=== PATIENT | female | born 1955 | race American Indian/Alaskan Native ===

== ENCOUNTER 2017-05-29 08:49 | Inpatient (IN) | payer MEDICAID ==
[2017-05-29] MEDS ORDERED: BABY ASPIRIN PO ONE (09:36)
--- NOTE | 2017-05-29 09:39 | Emergency Department Report ---
Chief Complaint: Chest Pain Stated Complaint: FACE SWOLLEN/CHEST PAIN/FAINTING Time Seen by Provider: 05/29/17 09:30 - HPI History of Present Illness: co l lower swelling jaw w hx mrsa then states having cp that is dull - bp elevated non adherent w meds also co dizziness flat affect contstricted on valiu, pepcid, coreg sometimes she takes her norvasc, losartan, and asa cig occ etoh occ mom dec dm dad dec ? cause no mi in past she thinks she is diabetic ro acs - ROS Review of Systems: cp dizzy jaw pain sob sometimes jaw swelling - Exam Vital Signs: Vital Signs 05/29/17 09:23 Temperature 98.4 F Pulse Rate 94 H Respiratory 18 Rate Blood Pressure 185/103 O2 Sat by Pulse 100 Oximetry MSE screening note: Focused history and physical exam performed. Due to findings the following was ordered: ED Disposition for MSE Condition: Stable
[2017-05-29 10:03] LABS: Basophils % (Auto) 0.5 % (0.0-1.8); Eosinophils % (Auto) 0.9 % (0.0-4.3); Hematocrit 40.4 % (30.3-42.9); Mean Corpuscular HGB Conc 32 % (30-34); Mean Corpuscular Hemoglobin 29 pg (28-32); Mean Corpuscular Volume 91 fl (79-97); Platelet Count 210 K/mm3 (140-440); Red Blood Count 4.45 M/mm3 (3.65-5.03); Red Cell Distribution Width 15.4 % (13.2-15.2); White Blood Count 5.3 K/mm3 (4.5-11.0)
[2017-05-29 10:17] LABS: INR 0.95 (0.87-1.13)
[2017-05-29 10:18] LABS: Partial Thromboplastin Time 28.6 Sec. (24.2-36.6)
[2017-05-29 10:20] LABS: Alanine Aminotransferase 16 units/L (7-56); Albumin 3.7 g/dL (3.9-5); Alkaline Phosphatase 95 units/L (35-129); Anion Gap 17 mmol/L; BUN/Creatinine Ratio 21.42; Blood Urea Nitrogen 15 mg/dL (7-17); Calcium 8.7 mg/dL (8.4-10.2); Carbon Dioxide 25 mmol/L (22-30); Chloride 106.8 mmol/L (98-107); Glucose 115 mg/dL (65-100); Potassium 3.7 mmol/L (3.6-5.0); Sodium 145 mmol/L (137-145); Total Protein 7.3 g/dL (6.3-8.2)
[2017-05-29 10:22] LABS: Bilirubin,Direct < 0.2 mg/dL (0-0.2)
[2017-05-29] MEDS ORDERED: CLEOCIN 900 MG/50 mL 900 MG/50 ML BAG IV ONE ×2 (10:46→16:30)
[2017-05-29] MEDS ORDERED: TORADOL IV ONE (10:46)
--- NOTE | 2017-05-29 10:51 | Emergency Department Report ---
ED Chest Pain HPI - General Chief Complaint: Chest Pain Stated Complaint: FACE SWOLLEN/CHEST PAIN/FAINTING Time Seen by Provider: 05/29/17 10:45 Source: patient Mode of arrival: Ambulatory Limitations: No Limitations - History of Present Illness Initial Comments: Patient presents to the emergency department with 2 separate complaints the first is chest pain which she's had worsening over the last couple weeks. She gets pressure in the center of her chest that lasts 15-20 minutes at a time. It is been getting worse. She does notice it sometimes with exertion but this is not consistent. The pain does not radiate that she does get short of breath with it from time to time. Denies fevers chills cough. Her second complaint is that she has some facial swelling and jaw pain. Note of a swelling and palpable induration to the left cheek. She's had MRSA in the past. She's been on ampicillin from her primary care for possible dental infection. MD Complaint: chest pain -: Gradual, week(s) Onset: during rest, during exertion Pain Location: substernal Pain Radiation: none Severity: moderate Quality: tightness, pressure Consistency: intermittent Improves With: nothing Worsens With: nothing re: dyspnea. denies: nausea, vomting, diaphoresis Other Symptoms: other (swelling of left lower jaw) - Related Data Home Medications Medication Instructions Recorded Confirmed Last Taken Diazepam 06/11/15 06/11/15 Unknown Losartan 06/11/15 06/11/15 Unknown traMADol 06/11/15 06/11/15 Unknown Previous Rx's Medication Instructions Recorded Last Taken Type FLUoxetine [PROzac] 20 mg PO QDAY #30 capsule 06/11/15 Unknown Rx Famotidine [Pepcid] 20 mg PO BID #60 tablet 06/11/15 Unknown Rx LORazepam 0.5 mg PO BID #30 tablet 06/11/15 Unknown Rx amLODIPine [Norvasc] 5 mg PO DAILY #30 tab 06/11/15 Unknown Rx Albuterol Sulfate [Ventolin HFA] 2 puff IH Q4H PRN #1 hfa.aer.ad 03/03/16 Unknown Rx Azithromycin [Zithromax] 250 mg PO DAILY #1 pkg 03/03/16 Unknown Rx Prednisone [predniSONE 5 mg (6-Day 5 mg PO .TAPER #1 tab.ds.pk 03/03/16 Unknown Rx Pack, 21 Tabs)] Allergies Allergy/AdvReac Type Severity Reaction Status Date / Time sulfamethoxazole Allergy Swelling Verified 05/29/17 11:11 [From Bactrim] trimethoprim [From Bactrim] Allergy Swelling Verified 05/29/17 11:11 Heart Score - HEART Score History: Highly suspicious EKG: Normal Age: 45-65 Risk factors: > 3 risk factors or hx of atherosclerotic disease Troponin: < normal limit HEART Score: 5 - Critical Actions Critical Actions: 4-6 pts:12-16.6% risk of adverse cardiac event. Should be admitted ED Review of Systems ROS: Stated complaint: FACE SWOLLEN/CHEST PAIN/FAINTING Other details as noted in HPI Constitutional: denies: chills, fever Eyes: denies: eye pain, eye discharge, vision change ENT: other (swelling of left lower jaw). denies: ear pain, throat pain, dental pain Respiratory: denies: cough, shortness of breath, wheezing Cardiovascular: chest pain, dyspnea on exertion. denies: palpitations, edema, syncope Endocrine: no symptoms reported Gastrointestinal: denies: abdominal pain, nausea, diarrhea Genitourinary: denies: urgency, dysuria, discharge Musculoskeletal: denies: back pain, joint swelling, arthralgia Skin: denies: rash, lesions Neurological: denies: headache, weakness, paresthesias Psychiatric: denies: anxiety, depression Hematological/Lymphatic: denies: easy bleeding, easy bruising ED Past Medical Hx - Past Medical History Previous Medical History?: Yes Hx Hypertension: Yes Hx CVA: Yes (2009) Hx Heart Attack/AMI: No Hx Congestive Heart Failure: No Hx Diabetes: Yes (NO MEDS) Hx GERD: No Hx Arthritis: Yes Hx Asthma: Yes Hx COPD: No Hx Tuberculosis: No Hx HIV: No - Surgical History Past Surgical History?: Yes Additional Surgical History: stomach surgery - Social History Smoking Status: Current Some Day Smoker Substance Use Type: Alcohol, Marijuana, Prescribed - Medications Home Medications: Home Medications Medication Instructions Recorded Confirmed Last Taken Type Diazepam 06/11/15 06/11/15 Unknown History FLUoxetine [PROzac] 20 mg PO QDAY #30 capsule 06/11/15 Unknown Rx Famotidine [Pepcid] 20 mg PO BID #60 tablet 06/11/15 Unknown Rx LORazepam 0.5 mg PO BID #30 tablet 06/11/15 Unknown Rx Losartan 06/11/15 06/11/15 Unknown History amLODIPine [Norvasc] 5 mg PO DAILY #30 tab 06/11/15 Unknown Rx traMADol 06/11/15 06/11/15 Unknown History Albuterol Sulfate [Ventolin HFA] 2 puff IH Q4H PRN #1 hfa.aer.ad 03/03/16 Unknown Rx Azithromycin [Zithromax] 250 mg PO DAILY #1 pkg 03/03/16 Unknown Rx Prednisone [predniSONE 5 mg (6-Day 5 mg PO .TAPER #1 tab.ds.pk 03/03/16 Unknown Rx Pack, 21 Tabs)] ED Physical Exam - General Limitations: No Limitations General appearance: alert, in no apparent distress - Head Head exam: Present: atraumatic, normocephalic - Eye Eye exam: Present: normal appearance - ENT ENT exam: Present: mucous membranes moist - Expanded ENT Exam Expanded Teeth exam: Absent: dental caries, dental tenderness # Throat exam: Positive: normal inspection. Negative: tonsillar erythema, tonsillomegaly - Neck Neck exam: Present: tenderness, other (there is swelling and tenderness to the left lateral mandible. It appears indurated) - Respiratory Respiratory exam: Present: normal lung sounds bilaterally. Absent: respiratory distress - Cardiovascular Cardiovascular Exam: Present: regular rate, normal rhythm. Absent: systolic murmur, diastolic murmur, rubs, gallop - GI/Abdominal GI/Abdominal exam: Present: soft, normal bowel sounds - Extremities Exam Extremities exam: Present: normal inspection - Back Exam Back exam: Present: normal inspection - Neurological Exam Neurological exam: Present: alert, oriented X3 - Psychiatric Psychiatric exam: Present: normal affect, normal mood - Skin Skin exam: Present: warm, dry, intact, normal color. Absent: rash ED Course Vital Signs 05/29/17 09:23 Temperature 98.4 F Pulse Rate 94 H Respiratory 18 Rate Blood Pressure 185/103 O2 Sat by Pulse 100 Oximetry YASEMIN score - Yasemin Score Age > 65: (0) No Aspirin use within the Past 7 Days: (0) No 3 or more CAD Risk Factors: (0) No 2 or more Angina events in past 24 hrs: (1) Yes Known CAD with more than 50% Stenosis: (0) No Elevated Cardiac Markers: (0) No ST Deviation Greater than 0.5mm: (0) No YASEMIN Score: 1 ED Medical Decision Making - Lab Data Result diagrams: 05/29/17 09:45 05/29/17 09:45 Laboratory Results - last 24 hr 05/29/17 05/29/17 05/29/17 09:45 09:45 09:45 WBC 5.3 RBC 4.45 Hgb 13.0 Hct 40.4 MCV 91 MCH 29 MCHC 32 RDW 15.4 H Plt Count 210 Lymph % (Auto) 27.6 [place] % (Auto) 9.5 H Eos % (Auto) 0.9 Baso % (Auto) 0.5 Lymph # 1.5 [place] # 0.5 Eos # 0.0 Baso # 0.0 Seg Neutrophils % 61.5 Seg Neutrophils # 3.3 PT 12.6 INR 0.95 APTT 28.6 Sodium 145 Potassium 3.7 Chloride 106.8 Carbon Dioxide 25 Anion Gap 17 BUN 15 Creatinine 0.7 Estimated GFR > 60 BUN/Creatinine Ratio 21.42 Glucose 115 H Calcium 8.7 Total Bilirubin 0.30 Direct Bilirubin < 0.2 AST 13 ALT 16 Alkaline Phosphatase 95 Troponin T < 0.010 Total Protein 7.3 Albumin 3.7 L Albumin/Globulin Ratio 1.0 - EKG Data -: EKG Interpreted by [place] - EKG Data 05/29/17 10:55 EKG is normal sinus rhythm rate of 81 normal axis normal intervals no ST or T- wave changes - Medical Decision Making Patient is a 61-year-old female who presents emergency Department with 2 complaints the first is chest pain that is concerning for possible ACS. Plan to admit her for stress testing. The second complaint is left jaw pain. She has a history of MRSA. She's been treated for a dental infection recently. The left lateral mandible is firm and swollen. Suspicion is that there is an underlying infection and possible abscess. Plan CT and treat with IV clindamycin. Discussed with hospitalist and plan admit for chest pain rule out. IV antibiotics for facial infection Portions of this chart were dictated with dictation software. There may be dictation errors contained within this note. Critical Care Time: No Critical care attestation.: If time is entered above; I have spent that time in minutes in the direct care of this critically ill patient, excluding procedure time. ED Disposition Clinical Impression: Chest pain, Facial cellulitis Disposition: OP ADMIT IP TO THIS HOSP Is pt being admited?: Yes Does the pt Need Aspirin: Yes Condition: Stable Instructions: Chest Pain (ED)
--- NOTE | 2017-05-29 10:56 | XRay Report ---
Chest 2 views: History: Chest pain. Findings: Online cardiomegaly. Trachea is midline. No consolidation, pneumothorax or pleural effusion. Impression: No acute cardiopulmonary findings.
[2017-05-29] MEDS ORDERED: NACL ONE ×2 (10:59→17:15)
[2017-05-29] MEDS ORDERED: TORADOL ONE (16:29)
[2017-05-29 17:13] LABS: Bilirubin,Urine NEG (Negative); Blood,Urine NEG (Negative); Ketones,Urine NEG (Negative); Leukocyte Esterase,Urine NEG (Negative); Mucus,Urine 1+ /HPF; Nitrite,Urine NEG (Negative); Urobilinogen,Urine < 2.0 mg/dL (<2.0)
[2017-05-29] MEDS ORDERED: PNEUMOVAX 23 IM ONE (18:26)
--- NOTE | 2017-05-29 18:26 | Cat Scan Report ---
FINAL REPORT PROCEDURE: CT FACIAL BONES W CON TECHNIQUE: Computerized tomography of the facial bones and soft tissues with axial and coronal sections was performed from the cranial aspect of the frontal sinuses to the caudal portion of the mandible following the IV injection of iodinated nonionic contrast. HISTORY: facial swelling, pain, possible abcess COMPARISON: No prior studies are available for comparison. FINDINGS: Paranasal sinuses appear clear. Mastoid air cells and middle ears appear clear. Globes appear symmetric. No postseptal swelling is seen. Soft tissue edema is seen in the left side of the jaw. Likely reactive lymph nodes are seen in the submandibular regions. The submandibular and parotid glands appear normal. No facial bone fracture is seen. No mandibular lesion is seen. There is no soft tissue abscess. IMPRESSION: Soft tissue swelling is seen in the left side of the jaw, which could be due to cellulitis. No bony abnormality is seen and no soft tissue abscess is seen.
--- NOTE | 2017-05-29 21:34 | History and Physical Report ---
History of Present Illness Date of examination: 05/29/17 Date of admission: 05/29/17 16:17 Chief complaint: L SIDED chest pain 2 weeks-intermittent in nature History of present illness: History of present illness: 61-year-old -[place] female well known to me from my office who is noncompliant with her blood pressure medication comes in for left-sided chest pain for past couple of weeks. Intermittent in nature. Mostly retrosternal. Occasionally chest pain worsens with exertion. Patient was asked to follow-up with the cardiology [facility] but she never followed. No diaphoresis nor palpitations. Shortness of breath on exertion present. Patient is obese and noncompliant. Patient HAs left cheek swelling secondary to dental infection. No fever no chills. Heart Score - HEART Score History: Highly suspicious EKG: Normal Age: 45-65 Risk factors: > 3 risk factors or hx of atherosclerotic disease Troponin: < normal limit HEART Score: 5 - Critical Actions Critical Actions: 4-6 pts:12-16.6% risk of adverse cardiac event. Should be admitted ED Review of Systems ROS: Stated complaint: FACE SWOLLEN/CHEST PAIN/FAINTING Other details as noted in HPI Constitutional: denies: chills, fever Eyes: denies: eye pain, eye discharge, vision change ENT: other (swelling of left lower jaw). denies: ear pain, throat pain, dental pain Respiratory: denies: cough, shortness of breath, wheezing Cardiovascular: chest pain, dyspnea on exertion. denies: palpitations, edema, syncope Endocrine: no symptoms reported Gastrointestinal: denies: abdominal pain, nausea, diarrhea Genitourinary: denies: urgency, dysuria, discharge Musculoskeletal: denies: back pain, joint swelling, arthralgia Skin: denies: rash, lesions Neurological: denies: headache, weakness, paresthesias Psychiatric: denies: anxiety, depression Hematological/Lymphatic: denies: easy bleeding, easy bruising ED Past Medical Hx - Past Medical History Previous Medical History?: Yes Hx Hypertension: Yes Hx CVA: Yes (2009) Hx Heart Attack/AMI: No Hx Congestive Heart Failure: No Hx Diabetes: Yes (NO MEDS) Hx GERD: No Hx Arthritis: Yes Hx Asthma: Yes Hx COPD: No Hx Tuberculosis: No Hx HIV: No - Surgical History Past Surgical History?: Yes Additional Surgical History: stomach surgery - Social History Smoking Status: Current Some Day Smoker Substance Use Type: Alcohol, Marijuana, Prescribed - Medications Home Medications: Home Medications Medication Instructions Recorded Confirmed Last Taken Type Diazepam 06/11/15 06/11/15 Unknown History FLUoxetine [PROzac] 20 mg PO QDAY #30 capsule 06/11/15 Unknown Rx Famotidine [Pepcid] 20 mg PO BID #60 tablet 06/11/15 Unknown Rx LORazepam 0.5 mg PO BID #30 tablet 06/11/15 Unknown Rx Losartan 06/11/15 06/11/15 Unknown History amLODIPine [Norvasc] 5 mg PO DAILY #30 tab 06/11/15 Unknown Rx traMADol 06/11/15 06/11/15 Unknown History Albuterol Sulfate [Ventolin HFA] 2 puff IH Q4H PRN #1 hfa.aer.ad 03/03/16 Unknown Rx Azithromycin [Zithromax] 250 mg PO DAILY #1 pkg 03/03/16 Unknown Rx Prednisone [predniSONE 5 mg (6-Day 5 mg PO .TAPER #1 tab.ds.pk 03/03/16 Unknown Rx Pack, 21 Tabs)] Medications and Allergies Allergies Allergy/AdvReac Type Severity Reaction Status Date / Time sulfamethoxazole Allergy Swelling Verified 05/29/17 11:11 [From Bactrim] trimethoprim [From Bactrim] Allergy Swelling Verified 05/29/17 11:11 Home Medications Medication Instructions Recorded Confirmed Last Taken Type Carvedilol [Coreg] 25 mg PO QDAY 05/29/17 05/29/17 Unknown History Diltiazem HCl [Diltiazem ER] 1 tab PO QDAY 05/29/17 05/29/17 Unknown History Ranitidine HCl [Zantac 150 MG TAB] 1 tab PO PRN PRN 05/29/17 05/29/17 Unknown History Active Meds: Active Medications Aspirin (Aspirin) 325 mg PO QDAY ROBERTO CARLOS Pneumococcal Polyvalent Vaccine (Pneumovax 23) 0.5 ml IM .ONCE ONE Stop: 05/30/17 12:01 Review of Systems All systems: negative Exam - Physical Exam Narrative exam: Lying in bed comfortably. In no distress. - Constitutional Vitals: Temp Pulse Resp BP Pulse Ox 98.1 F 84 20 157/80 98 05/29/17 21:09 05/29/17 21:09 05/29/17 21:09 05/29/17 21:09 05/29/17 21:09 General appearance: Present: no acute distress, well-nourished - EENT Eyes: Present: PERRL ENT: hearing intact, clear oral mucosa - Neck Neck: Present: supple, normal ROM - Respiratory Respiratory effort: normal Respiratory: bilateral: CTA - Cardiovascular Heart rate: 80 Rhythm: regular Heart Sounds: Present: S1 & S2. Absent: rub, click - Extremities Extremities: no ischemia, pulses intact, pulses symmetrical, No edema Peripheral Pulses: within normal limits - Abdominal General gastrointestinal: Present: soft, non-tender, non-distended, normal bowel sounds Female genitourinary: Present: normal - Rectal Rectal Exam: deferred - Integumentary Integumentary: Present: clear, warm, dry - Musculoskeletal Musculoskeletal: gait normal, strength equal bilaterally - Psychiatric Psychiatric: appropriate mood/affect, intact judgment & insight - Neurologic Neurologic: CNII-XII intact, moves all extremities, gait normal - Allied Health Allied health notes reviewed: nursing Results - Labs CBC & Chem 7: 05/29/17 09:45 05/29/17 09:45 Labs: Laboratory Last Values WBC 5.3 K/mm3 (4.5-11.0) 05/29/17 09:45 RBC 4.45 M/mm3 (3.65-5.03) 05/29/17 09:45 Hgb 13.0 gm/dl (10.1-14.3) 05/29/17 09:45 Hct 40.4 % (30.3-42.9) 05/29/17 09:45 MCV 91 fl (79-97) 05/29/17 09:45 MCH 29 pg (28-32) 05/29/17 09:45 MCHC 32 % (30-34) 05/29/17 09:45 RDW 15.4 % (13.2-15.2) H 05/29/17 09:45 Plt Count 210 K/mm3 (140-440) 05/29/17 09:45 Lymph % (Auto) 27.6 % (13.4-35.0) 05/29/17 09:45 [place] % (Auto) 9.5 % (0.0-7.3) H 05/29/17 09:45 Eos % (Auto) 0.9 % (0.0-4.3) 05/29/17 09:45 Baso % (Auto) 0.5 % (0.0-1.8) 05/29/17 09:45 Lymph # 1.5 K/mm3 (1.2-5.4) 05/29/17 09:45 [place] # 0.5 K/mm3 (0.0-0.8) 05/29/17 09:45 Eos # 0.0 K/mm3 (0.0-0.4) 05/29/17 09:45 Baso # 0.0 K/mm3 (0.0-0.1) 05/29/17 09:45 Seg Neutrophils % 61.5 % (40.0-70.0) 05/29/17 09:45 Seg Neutrophils # 3.3 K/mm3 (1.8-7.7) 05/29/17 09:45 PT 12.6 Sec. (12.2-14.9) 05/29/17 09:45 INR 0.95 (0.87-1.13) 05/29/17 09:45 APTT 28.6 Sec. (24.2-36.6) 05/29/17 09:45 Sodium 145 mmol/L (137-145) 05/29/17 09:45 Potassium 3.7 mmol/L (3.6-5.0) 05/29/17 09:45 Chloride 106.8 mmol/L (98-107) 05/29/17 09:45 Carbon Dioxide 25 mmol/L (22-30) 05/29/17 09:45 Anion Gap 17 mmol/L 05/29/17 09:45 BUN 15 mg/dL (7-17) 05/29/17 09:45 Creatinine 0.7 mg/dL (0.7-1.2) 05/29/17 09:45 Estimated GFR > 60 ml/min 05/29/17 09:45 BUN/Creatinine Ratio 21.42 % 05/29/17 09:45 Glucose 115 mg/dL (65-100) H 05/29/17 09:45 Calcium 8.7 mg/dL (8.4-10.2) 05/29/17 09:45 Total Bilirubin 0.30 mg/dL (0.1-1.2) 05/29/17 09:45 Direct Bilirubin < 0.2 mg/dL (0-0.2) 05/29/17 09:45 AST 13 units/L (5-40) 05/29/17 09:45 ALT 16 units/L (7-56) 05/29/17 09:45 Alkaline Phosphatase 95 units/L (35-129) 05/29/17 09:45 Troponin T < 0.010 ng/mL (0.00-0.029) 05/29/17 15:34 Total Protein 7.3 g/dL (6.3-8.2) 05/29/17 09:45 Albumin 3.7 g/dL (3.9-5) L 05/29/17 09:45 Albumin/Globulin Ratio 1.0 % 05/29/17 09:45 Urine Color Yellow (Yellow) 05/29/17 16:29 Urine Turbidity Clear (Clear) 05/29/17 16:29 Urine pH 5.0 (5.0-7.0) 05/29/17 16:29 Ur Specific [place] 1.026 (1.003-1.030) 05/29/17 16:29 Urine Protein 30 mg/dl mg/dL (Negative) 05/29/17 16:29 Urine Glucose (UA) Neg mg/dL (Negative) 05/29/17 16:29 Urine Ketones Neg mg/dL (Negative) 05/29/17 16:29 Urine Blood Neg (Negative) 05/29/17 16:29 Urine Nitrite Neg (Negative) 05/29/17 16:29 Urine Bilirubin Neg (Negative) 05/29/17 16:29 Urine Urobilinogen < 2.0 mg/dL (<2.0) 05/29/17 16:29 Ur Leukocyte Esterase Neg (Negative) 05/29/17 16:29 Urine WBC (Auto) 3.0 /HPF (0.0-6.0) 05/29/17 16:29 Urine RBC (Auto) 3.0 /HPF (0.0-6.0) 05/29/17 16:29 U Epithel Cells (Auto) 5.0 /HPF (0-13.0) 05/29/17 16:29 Urine Mucus 1+ /HPF 05/29/17 16:29 - Imaging and Cardiology EKG: report reviewed (normal sinus rhythm and LVH by voltage criteria nonspecific ST-T wave changes) Chest x-ray: report reviewed (no acute findings) Imaging and Cardiology: CT facial bones soft tissue swelling is seen in the left side of the jaw coma which could be due to cellulitis. No bony abnormalities seen. No soft tissue abscess is seen. Assessment and Plan Advance Directives: Yes (full code) VTE prophylaxis?: Chemical Plan of care discussed with patient/family: Yes - Patient Problems (1) Facial cellulitis Current Visit: Yes Status: Acute Plan to address problem: Left facial cellulitis probably secondary to a tooth abscess. Will treat with broad-spectrum antibiotics at this point in the form of Unasyn. No vancomycin ordered. (2) Acute coronary syndrome Current Visit: Yes Status: Acute Plan to address problem: We will get serial cardiac enzymes and Lexiscan in the morning. Differential diagnosis of costochondritis and reflux esophagitis to be considered. Possible reflux esophagitis because of her obesity and occasional epigastric pain. (3) Reflux esophagitis Current Visit: Yes Status: Chronic Plan to address problem: Patient has occasional epigastric pain and reflux symptoms. Chest pain may be secondary to reflux esophagitis. (4) Uncontrolled hypertension Current Visit: Yes Status: Chronic Plan to address problem: Patient's blood pressure is usually around 170 and diastolic of 110. Patient is noncompliant. Surprisingly the blood pressure is normal today. Continue antihypertensives. (5) DVT prophylaxis Current Visit: Yes Status: Acute Plan to address problem: On Lovenox 40 mg subcutaneous daily.
[2017-05-29] MEDS ORDERED: APRESOLINE IV PRN (21:40)
[2017-05-29] MEDS ORDERED: TYLENOL PO PRN (21:58)
[2017-05-29] MEDS ORDERED: ZOFRAN IV PRN (21:58)
[2017-05-29] MEDS ORDERED: DILAUDID IV PRN (21:58)
[2017-05-29] MEDS ORDERED: PERCOCET 5/325 PO PRN (21:58)
[2017-05-29] MEDS ORDERED: DULCOLAX PR PRN (21:58)
[2017-05-29] MEDS ORDERED: MILK OF MAGNESIA PO PRN (21:58)
[2017-05-29] MEDS: COREG PO SCH (22:16)
[2017-05-29] MEDS: PEPCID PO SCH (22:16)
[2017-05-29] MEDS: CARDIZEM CD PO SCH (22:16)
[2017-05-29] MEDS: UNASYN/NS 3 GM/100 ML 3 GM/100 ML BAG IV SCH (23:16)
[2017-05-30 01:01] LABS: Creatine Kinase MB 1.4 ng/mL (0.0-4.0)
[2017-05-30] MEDS: UNASYN/NS 3 GM/100 ML 3 GM/100 ML BAG IV SCH ×2 (05:25→13:21)
[2017-05-30 05:31] LABS: Basophils % (Auto) 0.4 % (0.0-1.8); Eosinophils % (Auto) 1.6 % (0.0-4.3); Hematocrit 36.9 % (30.3-42.9); Hemoglobin 11.9 gm/dl (10.1-14.3); Mean Corpuscular HGB Conc 32 % (30-34); Mean Corpuscular Hemoglobin 29 pg (28-32); Mean Corpuscular Volume 90 fl (79-97); Platelet Count 195 K/mm3 (140-440); Red Blood Count 4.12 M/mm3 (3.65-5.03); Red Cell Distribution Width 15.6 % (13.2-15.2); White Blood Count 7.5 K/mm3 (4.5-11.0)
[2017-05-30 05:59] LABS: Creatine Kinase MB 1.2 ng/mL (0.0-4.0)
[2017-05-30 06:05] LABS: Alanine Aminotransferase 16 units/L (7-56); Albumin 3.6 g/dL (3.9-5); Albumin/Globulin Ratio 1.1 %; Alkaline Phosphatase 83 units/L (35-129); Anion Gap 19 mmol/L; BUN/Creatinine Ratio 33.33; Blood Urea Nitrogen 20 mg/dL (7-17); Calcium 8.7 mg/dL (8.4-10.2); Carbon Dioxide 23 mmol/L (22-30); Chloride 105.4 mmol/L (98-107); Creatine Kinase 104 units/L (30-135); Glucose 119 mg/dL (65-100); Potassium 3.9 mmol/L (3.6-5.0); Sodium 143 mmol/L (137-145); Total Protein 6.8 g/dL (6.3-8.2)
[2017-05-30] MEDS ORDERED: LEXISCAN IV ONE ×2 (08:01→08:05)
--- NOTE | 2017-05-30 08:36 | Admit Criteria Form ---
Admission Criteria Documentation: CHEST PAIN Clinical Indications for Admission to Inpatient Care (Place 'X' for any and all applicable criteria): Admission is indicated for chest pain and ANY ONE of the following(1)(2)(3)(4)(5 ): [X]I. Angina with acute coronary syndrome (Also use Myocardial Infarction or Angina guideline) [ ]II. Hemodynamic instability [ ]III. Angina needing acute intervention as indicated by ALL of the following( 11)(12): [ ]a) Unstable angina is present as indicated by angina that is ANY ONE of the following: [ ]i) New onset [ ]ii) Nocturnal [ ]iii) Prolonged at rest [ ]iv) Progressive [ ]b) Angina warrants acute intervention as indicated by ANY ONE of the following: [ ]i) Recurrent angina (e.g, not responding as previously to treatment) [ ]ii) Angina at rest or with low-level activities despite initial medical therapy [ ]iii) New or presumably new ST-segment depression on ECG [ ]iv) Signs or symptoms of heart failure (eg, dyspnea, pulmonary edema) [ ]v) New or worsening mitral regurgitation [ ]vi) Hemodynamic instability [ ]vii) Dangerous arrhythmia (eg, sustained ventricular tachycardia) [ ]viii) History of percutaneous coronary intervention within 6 months [ ]ix) History of coronary artery bypass graft surgery [ ]x) YASEMIN risk score of 2 or greater[A] [ ]xi) History of Diabetes(14) [ ]xii) High-risk cardiac ischemia findings on noninvasive testing (e.g, echocardiogram, treadmill testing, nuclear scan) [ ]xiii) Chronic renal insufficiency (ie, estimated GFR less than 60 mL/min/1.732m) [ ]xiv) Left ventricular ejection fraction less than 40% [ ]IV. Evidence of GA (eg, cardiac biomarkers positive, ST-segment elevation on ECG) also use Myocardial Infarction Criteria Form. [ ]V. Pulmonary edema [ ]. Respiratory distress [ ]VII. Chest pain indicative of serious diagnosis other than coronary artery disease (eg, aortic dissection) [ ]VIII. Contraindications and/or Inappropriate clinical situations for Observational Care in patients with Chest Pain, when ANY ONE of the following is required: [ ]a) Patient with risk factor for pulmonary embolism, acute coronary syndrome and myocardial infarction (18) [ ]b) Patient with Pulmonary embolism require an average LOS of 4.3 days, therefore emergency department observation management is inappropriate 18,23 [ ]c) Painful condition/s in the elderly, have the highest rate of recidivism after emergency department observation management (10.8%) 20,21,22 [ ]d) Elevated cardiac biomarker requires intensive and exhaustive care (19) [ ]IX. General contraindications and/or Inappropriate clinical situations for Observational Care in patients with Chest Pain, when ANY ONE of the following is required: [ ]a) Prediction of prolongation of LOS based on ANY ONE of the following may be considered as a contraindication for observational care 2, 3, 4, 5, 6, 7, 8, 9, 10, 11 [ ]i) Age > 65 yrs. [ ]ii) Patient arriving by ambulance [ ]iii) Patient with high acuity [ ]iv) Patient requiring vital sign monitoring [ ]v) Patient on IV medication [ ]b) Systolic blood pressures 180mmHg 3,12 [ ]c) Patient with altered mental status including delirium and other alteration of consciousness, (3) [ ]d) Patient whose discharge disposition will be to a care home home or rehabilitation home should not be managed in Emergency Department Observation Unit. CMS rule requires 3 days hospital stay before such placement. 3,13 [ ]e) Patient with failure to thrive due to broad array of etiologies 3,16,17 [ ]f) Inability to ambulate 3,14 Extended stay beyond goal length of stay may be needed for (1)(28): [ ]a) Specific condition diagnosed after evaluation (eg, pulmonary embolism, aortic dissection) [ ]b) Unstable angina [ ]c) Continued suspicion of acute coronary syndrome with inability to complete needed cardiac evaluation (eg, patient clinically unable to undergo stress testing) [ ]d) Myocardial infarction (Contents from ANGINA and CHEST PAIN clinical indications for admission to inpatient care have been integrated in this form) The original Related Content Database (RCDb[facility] content created by [employer] has been revised. The portions of the content which have been revised are identified through the use of italic text or in bold, and Related Content Database (RCDb[facility] has neither reviewed nor approved the modified material. All other unmodified content is copyright Related Content Database (RCDb[facility]. Please see references footnoted in the original Related Content Database (RCDb[facility] edition 2016 Admission Criteria Met: Yes
--- NOTE | 2017-05-30 08:51 | Consultation ---
History of Present Illness Consult date: 05/30/17 History of present illness: 61-year-old -[place] female who is noncompliant with her blood pressure medication and comes in for left-sided chest pain for past couple of weeks. The pain is intermittent in nature, retrosternal, worsens with exertion. No diaphoresis nor palpitations. Shortness of breath on exertion present. Patient is obese and noncompliant. Patient denies orthopnea, pnd, palpitations , dizziness and syncope. Past History Past Medical History: arthritis, diabetes, hyperthyroidism Past Surgical History: Other (stomach) Social history: denies: smoking, alcohol abuse Family history: no significant family history Medications and Allergies Allergies Allergy/AdvReac Type Severity Reaction Status Date / Time sulfamethoxazole Allergy Swelling Verified 05/29/17 11:11 [From Bactrim] trimethoprim [From Bactrim] Allergy Swelling Verified 05/29/17 11:11 Home Medications Medication Instructions Recorded Confirmed Last Taken Type Carvedilol [Coreg] 25 mg PO QDAY 05/29/17 05/29/17 Unknown History Diltiazem HCl [Diltiazem ER] 1 tab PO QDAY 05/29/17 05/29/17 Unknown History Ranitidine HCl [Zantac 150 MG TAB] 1 tab PO PRN PRN 05/29/17 05/29/17 Unknown History Active Meds: Active Medications Acetaminophen (Tylenol) 650 mg PO Q4H PRN PRN Reason: Pain MILD(1-3)/Fever >100.5/FISCHER Aspirin (Aspirin) 325 mg PO QDAY [facility] Bisacodyl (Dulcolax) 10 mg [place] QDAY PRN PRN Reason: Constipation unrelieved by MOM Carvedilol (Coreg) 25 mg PO QDAY [facility] Last Admin: 05/29/17 22:16 Dose: 25 mg Diltiazem HCl (Cardizem Cd) 240 mg PO QDAY [facility] Last Admin: 05/29/17 22:16 Dose: 240 mg Famotidine (Pepcid) 20 mg PO BID [facility] Last Admin: 05/29/17 22:16 Dose: 20 mg Hydralazine HCl (Apresoline) 10 mg IV Q4HR PRN PRN Reason: Blood Pressure Last Admin: 05/29/17 22:08 Dose: 10 mg Hydromorphone HCl (Dilaudid) 0.5 mg IV Q3H PRN PRN Reason: Pain , Severe (7-10) Ampicillin Sodium/Sulbactam Sodium (Unasyn/Ns 3 Gm/100 Ml) 3 gm in 100 mls @ 100 mls/hr IV Q6HR ROBERTO CARLOS PRN Reason: Protocol Last Admin: 05/30/17 05:25 Dose: 100 mls/hr Magnesium Hydroxide (Milk Of Magnesia) 30 ml PO Q4H PRN PRN Reason: Constipation Ondansetron HCl (Zofran) 4 mg IV Q8H PRN PRN Reason: N/V unrelieved by Reglan Last Admin: 05/30/17 04:14 Dose: 4 mg Oxycodone/Acetaminophen (Percocet 5/325) 1 tab PO Q6H PRN PRN Reason: Pain, Moderate (4-6) Pneumococcal Polyvalent Vaccine (Pneumovax 23) 0.5 ml IM .ONCE ONE Stop: 05/30/17 12:01 Review of Systems All systems: negative (pertinent positives mentioned in HPI) Physical Examination Vital Signs Temp Pulse Resp BP Pulse Ox 98.4 F 94 H 18 185/103 100 05/29/17 09:23 05/29/17 09:23 05/29/17 09:23 05/29/17 09:23 05/29/17 09:23 General appearance: no acute distress HEENT: Positive: PERRL, EOMI Neck: Positive: neck supple Cardiac: Positive: Reg Rate and Rhythm, S1/S2 Lungs: Positive: Normal Exam, clear to auscultation Neuro: Positive: Grossly Intact Abdomen: Positive: Soft, Active Bowel Sounds Extremities: Present: normal Results 05/30/17 04:52 05/30/17 04:52 Cardiac Enzymes 05/29/17 05/30/17 Range/Units 23:47 04:52 AST 13 (5-40) units/L CK-MB (CK-2) 1.4 1.2 (0.0-4.0) ng/mL Lipids 05/29/17 Range/Units 23:47 Triglycerides 62 (2-149) mg/dL Cholesterol 134 (50-199) mg/dL HDL Cholesterol 32 L (40-59) mg/dL Cholesterol/HDL Ratio 4.18 % CBC 05/30/17 Range/Units 04:52 WBC 7.5 (4.5-11.0) K/mm3 RBC 4.12 (3.65-5.03) M/mm3 Hgb 11.9 (10.1-14.3) gm/dl Hct 36.9 (30.3-42.9) % Plt Count 195 (140-440) K/mm3 Lymph # 0.7 L (1.2-5.4) K/mm3 [place] # 0.6 (0.0-0.8) K/mm3 Eos # 0.1 (0.0-0.4) K/mm3 Baso # 0.0 (0.0-0.1) K/mm3 Comprehensive Metabolic Panel 05/30/17 Range/Units 04:52 Sodium 143 (137-145) mmol/L Potassium 3.9 (3.6-5.0) mmol/L Chloride 105.4 (98-107) mmol/L Carbon Dioxide 23 (22-30) mmol/L BUN 20 H (7-17) mg/dL Creatinine 0.6 L (0.7-1.2) mg/dL Glucose 119 H (65-100) mg/dL Calcium 8.7 (8.4-10.2) mg/dL AST 13 (5-40) units/L ALT 16 (7-56) units/L Alkaline Phosphatase 83 (35-129) units/L Total Protein 6.8 (6.3-8.2) g/dL Albumin 3.6 L (3.9-5) g/dL EKG interpretations - Telemetry EKG Rhythm: Sinus Rhythm Assessment and Plan Acute coronary syndrome - Troponin negative x 3. EKG shows sinus rhythm with nonspecific STTW changes. lexiscan this AM. nuclear stress test completed. Small inferior defect present on stress images, likely secondary to attenuation. EF 66%. Low risk. Reflux esophagitis - management per primary Uncontrolled hypertension - maximize antihypertensives
[2017-05-30] MEDS ORDERED: ASPIRIN PO SCH (10:00)
--- NOTE | 2017-05-30 10:24 | Discharge Summary ---
Providers - Providers Date of Admission: 05/29/17 16:17 Attending physician: KARLEY ANDERSON MD 05/29/17 21:55 Consult to Physician [CONS] Routine Consulting Provider: DARIA SCHOFIELD Reason For Exam: chest pain Place consult to:: Dr. Schofield Notified:: Umair PATTON Was contact made?: Yes If yes, spoke with:: Dr. Williamson Time called:: 07:50 Primary care physician: EREN MALDONADO Hospitalization Condition: Stable Hospital course: 61-year-old female who is noncompliant with her blood pressure medication comes in for left-sided chest pain for past couple of weeks. (1) Facial cellulitis She was treated on IV antibiotics while in hospital, and was transitioned to oral antibiotics upon discharge. She is also advised to see a dentist as the source of infection appears to be [place] (2) Acute coronary syndrome She was seen in conjunction with cardiology while in hospital She had one spuriously elevated troponin, repeat Trop is negative, she had 3 sets of troponins that were negative. . EKG shows sinus rhythm with nonspecific STTW changes. lexiscan this AM. nuclear stress test completed. Small inferior defect present on stress images, likely secondary to attenuation. EF 66%. Low risk (3) Reflux esophagitis Patient has occasional epigastric pain and reflux symptoms. Chest pain may be secondary to reflux esophagitis. She is being treated with calcium channel cory and H2 cory as needed which she will continue taking as an outpatient (4) Uncontrolled hypertension medications were optimized, she was counseled on improved compliance with her blood pressure medications. (5) medication nonadherence Patient was counseled on improved compliance, she was told about the risks of heart attack, stroke, heart failure and renal failure if she has uncontrolled blood pressure. She verbalizes understanding Disposition: DC-01 TO HOME OR SELFCARE Time spent for discharge: 33 minutes Core Measure Documentation - Palliative Care Palliative Care/ Comfort Measures: Not Applicable - Core Measures Any of the following diagnoses?: none Exam - Constitutional Vitals: Temp Pulse Resp BP Pulse Ox 99.6 F 87 20 141/67 98 05/30/17 05:45 05/30/17 05:45 05/30/17 05:45 05/30/17 05:45 05/30/17 05:45 General appearance: Present: no acute distress, well-nourished - EENT Eyes: Present: PERRL ENT: hearing intact, clear oral mucosa, other (swelling and tenderness along left jawline) - Neck Neck: Present: supple, normal ROM - Respiratory Respiratory effort: normal Respiratory: bilateral: CTA - Cardiovascular Heart Sounds: Present: S1 & S2. Absent: rub, click - Extremities Extremities: pulses symmetrical, No edema Peripheral Pulses: within normal limits - Abdominal General gastrointestinal: Present: soft, non-tender, non-distended, normal bowel sounds Female genitourinary: Present: normal - Integumentary Integumentary: Present: clear, warm, dry - Musculoskeletal Musculoskeletal: gait normal, strength equal bilaterally - Psychiatric Psychiatric: appropriate mood/affect, intact judgment & insight - Neurologic Neurologic: CNII-XII intact, moves all extremities Plan Follow up with: EREN MALDONADO MD [Primary Care Provider] - 3-5 Days Prescriptions: Acetaminophen/Codeine [Tylenol /Codeine # 3 tab] 1 tab PO Q6H PRN #30 tab PRN Reason: Pain Amoxicillin/K Clav Tab [Augmentin 875 mg] 1 tab PO Q12HR #14 tab Aspirin EC [Aspirin Enteric Coated TAB] 81 mg PO QDAY #30 tablet. Carvedilol [Coreg] 25 mg PO BID #60 tablet Diltiazem HCl [Diltiazem ER] 1 tab PO QDAY #30 tab.er.24h Ranitidine HCl [Zantac 150 MG TAB] 1 tab PO PRN PRN #30 tablet PRN Reason: GERD
[2017-05-30 11:24] LABS: Creatine Kinase MB 1.3 ng/mL (0.0-4.0)
[2017-05-30] MEDS ORDERED: PNEUMOVAX 23 IM ONE (12:00)
[2017-05-30] MEDS: PEPCID PO SCH (13:34)
[2017-05-30] MEDS: CARDIZEM CD PO SCH (13:35)
[2017-05-30] MEDS: COREG PO SCH (13:35)
[2017-05-30 13:47] VITALS: BP 168/81
--- NOTE | 2017-05-31 17:43 | Event Note ---
Date: 05/31/17 Stress thallium myocardial perfusion study report done 05/30/2017: Left ventricular chamber sizes with normals. Perfusion study demonstrates a small apical defect, worse on the resting study. No significant reversible defects identified. Gated analysis demonstrates normal left ventricular systolic function, ejection fraction 66%. Conclusion: Small fixed apical defect likely secondary to breast attenuation artifact. There is no reversible ischemia demonstrated on this study, negative study.
== END 2017-05-30 14:42 | disposition home or self-care (01) | DRG 311 ==
LOC: ED 08:49 → 4A 16:17
PROVIDERS: ADMIT Internal Medicine; ATTEND Internal Medicine
DX: I24.9 Acute ischemic heart disease, unspecified (principal); E11.9 Type 2 diabetes mellitus without complications; J45.909 Unspecified asthma, uncomplicated; F17.200 Nicotine dependence, unspecified, uncomplicated; L03.211 Cellulitis of face; I10 Essential (primary) hypertension; K21.0 Gastro-esophageal reflux disease with esophagitis; E05.90 Thyrotoxicosis, unspecified without thyrotoxic crisis or storm; Z88.8 Allergy status to other drugs, medicaments and biological substances; Z86.73 Personal history of transient ischemic attack (TIA), and cerebral infarction without residual deficits
CPT/HCPCS: 36415; 70487; 71020; 78452; 80053; 80061; 80074; 81001; 82550; 82553; 84484; 85025; 85610; 85730; 90732; 93005; 93010; 93017; 96365; 96375; A9502; J0295; J0360; J1885; J2405; J2785; Q9967

== ENCOUNTER 2017-09-14 08:22 | Emergency (ER) | payer MEDICAID ==
--- NOTE | 2017-09-14 09:19 | Emergency Department Report ---
ED Extremity Problem HPI - General Chief complaint: Pain General Stated complaint: LEFT SIDE HIP AND THIGH PAIN Time Seen by Provider: 09/14/17 09:04 Source: patient, family Mode of arrival: Ambulatory Limitations: No Limitations - History of Present Illness Initial comments: Patient here complaining of lower neck complaining of body aches the left side hip and thigh pain for months. She says she's been diagnosed with arthritis in these areas and she has taken Tylenol 3 which is not helping. Patient says she has appointment with [facility] clinic orthopedic but is clinically too long so she decided to come to the emergency room for pain. Denies any urinary burning frequency or urgency. Denies any nausea or vomiting. Denies any back or abdominal pain. Pain is 6 out of 10 and she says she took Tylenol 3 and it's not helping. She said her pain is achy and has been getting worse lately. MD Complaint: joint paint Onset/Timin -: month(s) Location: left, lower extremity, other (hip and thighhip and thigh) History of Same: Yes -: Yes arthralgia, No fever, No associated dyspnea, No associated chest pain Radiation: none Severity scale (0 -10): 6 Quality: aching Consistency: intermittent Improves with: immobilization, rest Worsens with: weight bearing, walking, exertion Associated Symptoms: arthralgias. denies: chest pain, shortness of breath, fever, myalgias, rash - Related Data Previous Rx's Medication Instructions Recorded Last Taken Type Acetaminophen/Codeine [Tylenol 1 tab PO Q6H PRN #30 tab 05/30/17 Unknown Rx /Codeine # 3 tab] Amoxicillin/K Clav Tab [Augmentin 1 tab PO Q12HR #14 tab 05/30/17 Unknown Rx 875 mg] Aspirin EC [Aspirin Enteric Coated 81 mg PO QDAY #30 tablet.dr 05/30/17 Unknown Rx TAB] Carvedilol [Coreg] 25 mg PO BID #60 tablet 05/30/17 Unknown Rx Diltiazem HCl [Diltiazem 24Hr ER] 1 tab PO QDAY #30 tab.er.24h 05/30/17 Unknown Rx Ranitidine HCl [Zantac 150 MG TAB] 1 tab PO PRN PRN #30 tablet 05/30/17 Unknown Rx traMADol [Ultram] 50 mg PO Q6HR PRN #20 tablet 09/14/17 Unknown Rx Allergies Allergy/AdvReac Type Severity Reaction Status Date / Time sulfamethoxazole Allergy Swelling Verified 05/29/17 11:11 [From Bactrim] trimethoprim [From Bactrim] Allergy Swelling Verified 05/29/17 11:11 ED Review of Systems ROS: Stated complaint: LEFT SIDE HIP AND THIGH PAIN Other details as noted in HPI Comment: All other systems reviewed and negative Constitutional: no symptoms reported Respiratory: no symptoms reported Cardiovascular: denies: chest pain, palpitations, dyspnea on exertion, edema, syncope, paroxysmal nocturnal dyspnea Gastrointestinal: denies: abdominal pain, nausea, vomiting, diarrhea Genitourinary: denies: urgency, dysuria, frequency, hematuria, discharge, abnormal menses, dyspareunia Musculoskeletal: arthralgia. denies: back pain, joint swelling, myalgia Skin: denies: rash Neurological: denies: headache, weakness, numbness, paresthesias, confusion, abnormal gait, vertigo ED Past Medical Hx - Past Medical History Previous Medical History?: Yes Hx Hypertension: Yes Hx CVA: Yes (2009) Hx Heart Attack/AMI: No Hx Congestive Heart Failure: No Hx Diabetes: Yes (NO MEDS) Hx GERD: No Hx Arthritis: Yes (degenerative joint disease) Hx Asthma: Yes Hx COPD: No Hx Tuberculosis: No Hx HIV: No Additional medical history: Gastric ulcer - Surgical History Past Surgical History?: Yes Additional Surgical History: stomach surgery - Family History Family history: hypertension - Social History Smoking Status: Former Smoker Substance Use Type: Alcohol, Marijuana, Prescribed - Medications Home Medications: Home Medications Medication Instructions Recorded Confirmed Last Taken Type Acetaminophen/Codeine [Tylenol 1 tab PO Q6H PRN #30 tab 05/30/17 Unknown Rx /Codeine # 3 tab] Amoxicillin/K Clav Tab [Augmentin 1 tab PO Q12HR #14 tab 05/30/17 Unknown Rx 875 mg] Aspirin EC [Aspirin Enteric Coated 81 mg PO QDAY #30 tablet. 05/30/17 Unknown Rx TAB] Carvedilol [Coreg] 25 mg PO BID #60 tablet 05/30/17 Unknown Rx Diltiazem HCl [Diltiazem 24Hr ER] 1 tab PO QDAY #30 tab.er.24h 05/30/17 Unknown Rx Ranitidine HCl [Zantac 150 MG TAB] 1 tab PO PRN PRN #30 tablet 05/30/17 Unknown Rx traMADol [Ultram] 50 mg PO Q6HR PRN #20 tablet 09/14/17 Unknown Rx ED Physical Exam - General Limitations: No Limitations General appearance: alert, in no apparent distress - Head Head exam: Present: atraumatic, normocephalic, normal inspection - Eye Eye exam: Present: normal appearance, PERRL, EOMI. Absent: periorbital swelling , periorbital tenderness Pupils: Present: normal accommodation - ENT ENT exam: Present: normal exam, normal orophraynx, mucous membranes moist - Neck Neck exam: Present: normal inspection, full ROM. Absent: tenderness, meningismus, lymphadenopathy - Respiratory Respiratory exam: Present: normal lung sounds bilaterally. Absent: respiratory distress, wheezes, chest wall tenderness, accessory muscle use - Cardiovascular Cardiovascular Exam: Present: regular rate, normal rhythm, normal heart sounds. Absent: systolic murmur, diastolic murmur - GI/Abdominal GI/Abdominal exam: Present: soft, normal bowel sounds. Absent: distended, tenderness, guarding, rebound, rigid, organomegaly, mass, bruit, pulsatile mass , hernia - Extremities Exam Extremities exam: Present: normal inspection, full ROM, normal capillary refill , other (no clubbing, cyanosis or edema to extremities. No neurovascular compromise. +2 pulses to all extremities). Absent: tenderness, pedal edema, joint swelling, calf tenderness - Expanded Lower Extremity Exam Left Hip exam: Present: normal inspection, full ROM, pelvic stability. Absent: tenderness, swelling, abrasion, laceration, ecchymosis, deformity, crepidus, dislocation, erythema, external rotation, internal rotation, shortening Upper Leg exam: Present: normal inspection, full ROM. Absent: tenderness, swelling, abrasion, laceration, ecchymosis, deformity, crepidus, dislocation, erythema Knee exam: Present: normal inspection, full ROM, full knee extension. Absent: tenderness, swelling, abrasion, laceration, ecchymosis, deformity, crepidus, dislocation, erythema, effusion, pain w/ pronation/supination, posterior draw sign, pain/laxity with valgus, pain/laxity with varus Lower Leg exam: Present: normal inspection, full ROM. Absent: tenderness, swelling, abrasion, laceration, ecchymosis, deformity, crepidus, dislocation, erythema, palpable cord, Millicent's sign Ankle exam: Present: normal inspection, full ROM. Absent: tenderness, swelling , abrasion, laceration, ecchymosis, deformity, crepidus, dislocation, erythema Foot/Toe exam: Present: normal inspection, full ROM. Absent: tenderness, swelling, abrasion, laceration, ecchymosis, deformity, crepidus, dislocation, erythema, amputation, puncture wound, foreign body, calcaneal tenderness, tenderness at base of 5th metatarsal, nail avulsion, subungual hematoma Neuro vascular tendon exam: Present: no vascular compromise. Absent: pulse deficit, abnormal cap refill, motor deficit, sensory deficit, tendon deficit, extremity cold to touch, pallor, abnormal 2-point discrimination, decreased fine /light touch, foot drop, peroneal nerve deficit, significant pain with passive ROM of distal joint Gait: Positive: observed and normal - Back Exam Back exam: Present: normal inspection, full ROM, other (negative straight leg raises bilaterally and no saddle anesthesia). Absent: tenderness, CVA tenderness (R), CVA tenderness (L), muscle spasm, paraspinal tenderness, vertebral tenderness, rash noted - Neurological Exam Neurological exam: Present: alert, oriented X3, normal gait, reflexes normal, other (no focal neurological deficit). Absent: motor sensory deficit - Psychiatric Psychiatric exam: Present: normal affect, normal mood - Skin Skin exam: Present: warm, dry, intact, normal color. Absent: rash ED Course Vital Signs 09/14/17 09/14/17 08:38 09:19 Temperature 98 F Pulse Rate 103 H 98 H Respiratory 20 Rate Blood Pressure 151/95 O2 Sat by Pulse 100 Oximetry - Reevaluation(s) Reevaluation #1: 09/14/17 10:46 Patient given Decadron 10 mg IM, [place] 5/325 mg 2 tablets by mouth and Toradol 60 mg by mouth in emergency room which relieved her pain. ED Medical Decision Making - Medical Decision Making Patient here complaining of left-sided pain to include her left hip and left thigh. This is been going on for months at its chronic. Patient is awaiting in appointment as IV clinic, [place]. She's been taking Tylenol 3 she said and it 's not helping. Patient has been diagnosed with arthritis. I discussed with patient that she'll need to follow up with orthopedic for further evaluation and treatment. She was given [place] 5/325 2 tablets, Decadron 10 mg IM and Toradol 60 mg IM in the emergency room which relieved her pain. Discharged home a prescription for Ultram and to follow-up with her orthopedic doctor at [facility] as scheduled. Critical care attestation.: If time is entered above; I have spent that time in minutes in the direct care of this critically ill patient, excluding procedure time. ED Disposition Clinical Impression: Arthralgia of multiple sites Disposition: DC-01 TO HOME OR SELFCARE Is pt being admited?: No Does the pt Need Aspirin: No Condition: Stable Instructions: Arthralgia (ED) Additional Instructions: Please follow-up with the orthopedic doctor as scheduled Ultram causes drowsiness so please do not drive or operate heavy machinery while taking this medication Prescriptions: traMADol [Ultram] 50 mg PO Q6HR PRN #20 tablet PRN Reason: Pain Referrals: PRIMARY CARE, [Primary Care Provider] - 3-5 Days Forms: Accompanied Note, Work/School Release Form(ED)
[2017-09-14] MEDS ORDERED: NORCO 5/325 PO ONE (09:20)
[2017-09-14] MEDS ORDERED: DECADRON IM ONE (09:20)
[2017-09-14] MEDS ORDERED: TORADOL IM ONE (09:20)
[2017-09-14 11:03] VITALS: BP 150/80
== END 2017-09-14 11:01 | disposition home or self-care (01) ==
LOC: ED 08:22
DX: M79.652 Pain in left thigh (principal); M25.552 Pain in left hip; Z91.013 Allergy to seafood; I10 Essential (primary) hypertension; Z86.73 Personal history of transient ischemic attack (TIA), and cerebral infarction without residual deficits; E11.9 Type 2 diabetes mellitus without complications; M19.90 Unspecified osteoarthritis, unspecified site; Z87.891 Personal history of nicotine dependence; Z79.82 Long term (current) use of aspirin; F12.10 Cannabis abuse, uncomplicated
CPT/HCPCS: 96372; 99282; J1100; J1885

== ENCOUNTER 2019-09-04 08:32 | Emergency (ER) | payer MEDICAID ==
[2019-09-04 09:46] LABS: Basophils % (Auto) 0.4 % (0.0-1.8); Eosinophils % (Auto) 0.8 % (0.0-4.3); Hematocrit 36.8 % (30.3-42.9); Hemoglobin 12.1 gm/dl (10.1-14.3); Lymphocytes # (Auto) 1.5 K/mm3 (1.2-5.4); Mean Corpuscular HGB Conc 33 % (30-34); Mean Corpuscular Volume 94 fl (79-97); Monocytes # (Auto) 0.5 K/mm3 (0.0-0.8); Monocytes % (Auto) 9.6 % (0.0-7.3); Platelet Count 235 K/mm3 (140-440); Red Blood Count 3.93 M/mm3 (3.65-5.03); Red Cell Distribution Width 16.2 % (13.2-15.2)
[2019-09-04 09:59] LABS: BUN/Creatinine Ratio 30; Blood Urea Nitrogen 27 mg/dL (7-17); Calcium 8.4 mg/dL (8.4-10.2); Hemolysis Index 3
[2019-09-04 10:00] LABS: INR 0.98 (0.87-1.13)
[2019-09-04 10:50] LABS: Bacteria,Urine 4+ /HPF (Negative); Bilirubin,Urine NEG (Negative); Blood,Urine NEG (Negative); Color,Urine Yellow (Yellow); Mucus,Urine 2+ /HPF; RBC,Urine < 1.0 /HPF (0.0-6.0); Urobilinogen,Urine < 2.0 mg/dL (<2.0)
--- NOTE | 2019-09-04 11:25 | Emergency Department Report ---
ED General Adult HPI - General Chief complaint: Dizziness Stated complaint: DIZZY/FATIGUE/CHEST/BACK PAIN/SOB Time Seen by Provider: 09/04/19 09:19 Source: patient Mode of arrival: Ambulatory Limitations: No Limitations - History of Present Illness Initial comments: 63-year-old female who admits to being on 3 antihypertensive agents but is noncompliant with her diuretic. She doesn't know her medications. She states she went to her family physician 2 weeks ago and her blood pressure was fine. She is here today because she feels weak. She does not have vertigo. What she describes is having orthostatic weakness. The room does not actually spin c ontrary to what is written in triage she tells me on my encounter. She also states that she has had a foot edema for the last few weeks. She does not complain of headache chest pain abdominal pain. She has not actually had a syncopal episode. -: Gradual, week(s) Improves with: none Worsens with: cold therapy Associated Symptoms: denies other symptoms Treatments Prior to Arrival: none - Related Data Previous Rx's Medication Instructions Recorded Last Taken Type Acetaminophen/Codeine [Tylenol 1 tab PO Q6H PRN #30 tab 05/30/17 Unknown Rx /Codeine # 3 tab] Amoxicillin/K Clav Tab [Augmentin 1 tab PO Q12HR #14 tab 05/30/17 Unknown Rx 875 mg] Aspirin EC [Halfprin EC] 81 mg PO QDAY #30 tablet. 05/30/17 Unknown Rx Carvedilol [Coreg] 25 mg PO BID #60 tablet 05/30/17 Unknown Rx dilTIAZem HCl [Diltiazem 24Hr ER 1 tab PO QDAY #30 tab.er.24h 05/30/17 Unknown Rx ([place])] raNITIdine HCl [Zantac] 1 tab PO PRN PRN #30 tablet 05/30/17 Unknown Rx traMADol [Ultram] 50 mg PO Q6HR PRN #20 tablet 09/14/17 Unknown Rx Nitrofurantoin [place]/M-Cryst 100 mg PO Q12HR #10 capsule 09/04/19 Unknown Rx [Macrobid CAP] Allergies Allergy/AdvReac Type Severity Reaction Status Date / Time sulfamethoxazole Allergy Swelling Verified 05/29/17 11:11 [From Bactrim] trimethoprim [From Bactrim] Allergy Swelling Verified 05/29/17 11:11 ED Review of Systems ROS: Stated complaint: DIZZY/FATIGUE/CHEST/BACK PAIN/SOB Other details as noted in HPI Constitutional: weakness. denies: chills, fever Eyes: denies: eye pain, eye discharge, vision change ENT: denies: ear pain, throat pain Respiratory: denies: cough, shortness of breath, wheezing Cardiovascular: denies: chest pain, palpitations Endocrine: no symptoms reported Gastrointestinal: denies: abdominal pain, nausea, diarrhea Genitourinary: denies: urgency, dysuria, discharge Musculoskeletal: denies: back pain, joint swelling, arthralgia Skin: denies: rash, lesions Neurological: denies: headache, weakness, paresthesias Psychiatric: denies: anxiety, depression Hematological/Lymphatic: denies: easy bleeding, easy bruising ED Past Medical Hx - Past Medical History Hx Hypertension: Yes Hx CVA: Yes (2009) Hx Heart Attack/AMI: No Hx Congestive Heart Failure: No Hx Diabetes: Yes Hx GERD: No Hx Arthritis: Yes Hx Asthma: Yes Hx COPD: No Hx Tuberculosis: No Hx HIV: No Additional medical history: Gastric ulcer - Surgical History Additional Surgical History: stomach surgery - Social History Smoking Status: Never Smoker Substance Use Type: Alcohol - Medications Home Medications: Home Medications Medication Instructions Recorded Confirmed Last Taken Type Acetaminophen/Codeine [Tylenol 1 tab PO Q6H PRN #30 tab 05/30/17 Unknown Rx /Codeine # 3 tab] Amoxicillin/K Clav Tab [Augmentin 1 tab PO Q12HR #14 tab 05/30/17 Unknown Rx 875 mg] Aspirin EC [Halfprin EC] 81 mg PO QDAY #30 tablet. 05/30/17 Unknown Rx Carvedilol [Coreg] 25 mg PO BID #60 tablet 05/30/17 Unknown Rx dilTIAZem HCl [Diltiazem 24Hr ER 1 tab PO QDAY #30 tab.er.24h 05/30/17 Unknown Rx (LA)] raNITIdine HCl [Zantac] 1 tab PO PRN PRN #30 tablet 05/30/17 Unknown Rx traMADol [Ultram] 50 mg PO Q6HR PRN #20 tablet 09/14/17 Unknown Rx Nitrofurantoin [place]/M-Cryst 100 mg PO Q12HR #10 capsule 09/04/19 Unknown Rx [Macrobid CAP] ED Physical Exam - General Limitations: No Limitations General appearance: alert, in no apparent distress - Head Head exam: Present: atraumatic, normocephalic - Eye Eye exam: Present: normal appearance. Absent: scleral icterus - ENT ENT exam: Present: mucous membranes moist - Neck Neck exam: Present: normal inspection. Absent: tenderness, meningismus - Respiratory Respiratory exam: Present: normal lung sounds bilaterally. Absent: respiratory distress - Cardiovascular Cardiovascular Exam: Present: regular rate, normal rhythm. Absent: systolic murmur, diastolic murmur, rubs, gallop - GI/Abdominal GI/Abdominal exam: Present: soft, normal bowel sounds. Absent: distended, tenderness, guarding, rebound, rigid - Extremities Exam Extremities exam: Present: pedal edema (1+). Absent: joint swelling, calf tenderness - Back Exam Back exam: Present: normal inspection - Neurological Exam Neurological exam: Present: alert, oriented X3, CN II-XII intact, normal gait, other (cerebellar testing was normal). Absent: motor sensory deficit - Psychiatric Psychiatric exam: Present: normal affect, normal mood - Skin Skin exam: Present: warm, dry, intact, normal color. Absent: rash ED Course Vital Signs 09/04/19 09/04/19 09/04/19 08:36 11:02 11:31 Temperature 98.6 F 98.5 F Pulse Rate 88 73 Respiratory 16 18 18 Rate Blood Pressure 175/98 Blood Pressure 160/86 [Right] O2 Sat by Pulse 98 98 Oximetry - Reevaluation(s) Reevaluation #1: Patient is entirely comfortable in no distress. She now tells me that she is on 4 blood pressure medicines but she doesn't know what they are. I explained to her that I cannot adjust her medicines at this point. She sees Dr. Maldonado. We have discussed her case. He states that he will see her at 11:00 tomorrow. 09/04/19 11:56 09/04/19 12:02 I will give her a prescription for Macrobid at this point and culture her urine. ED Medical Decision Making - Lab Data Result diagrams: 09/04/19 09:26 09/04/19 09:26 Laboratory Results - last 24 hr 09/04/19 09/04/19 09/04/19 09:26 09:26 09:26 WBC 5.4 RBC 3.93 Hgb 12.1 Hct 36.8 MCV 94 MCH 31 MCHC 33 RDW 16.2 H Plt Count 235 Lymph % (Auto) 27.0 [place] % (Auto) 9.6 H Eos % (Auto) 0.8 Baso % (Auto) 0.4 Lymph # 1.5 [place] # 0.5 Eos # 0.0 Baso # 0.0 Seg Neutrophils % 62.2 Seg Neutrophils # 3.4 PT 12.7 INR 0.98 Sodium 146 H Potassium 4.1 Chloride 109.1 H Carbon Dioxide 25 Anion Gap 16 BUN 27 H Creatinine 0.9 Estimated GFR > 60 BUN/Creatinine Ratio 30 Glucose 109 H Lactic Acid Calcium 8.4 Troponin T < 0.010 Urine Color Urine Turbidity Urine pH Ur Specific [place] Urine Protein Urine Glucose (UA) Urine Ketones Urine Blood Urine Nitrite Urine Bilirubin Urine Urobilinogen Ur Leukocyte Esterase Urine WBC (Auto) Urine RBC (Auto) U Epithel Cells (Auto) Urine Bacteria (Auto) Urine Mucus 09/04/19 09/04/19 09:26 10:29 WBC RBC Hgb Hct MCV MCH MCHC RDW Plt Count Lymph % (Auto) [place] % (Auto) Eos % (Auto) Baso % (Auto) Lymph # [place] # Eos # Baso # Seg Neutrophils % Seg Neutrophils # PT INR Sodium Potassium Chloride Carbon Dioxide Anion Gap BUN Creatinine Estimated GFR BUN/Creatinine Ratio Glucose Lactic Acid 0.70 Calcium Troponin T Urine Color Yellow Urine Turbidity Clear Urine pH 5.0 Ur Specific [place] 1.028 Urine Protein 30 mg/dl Urine Glucose (UA) Neg Urine Ketones Neg Urine Blood Neg Urine Nitrite Neg Urine Bilirubin Neg Urine Urobilinogen < 2.0 Ur Leukocyte Esterase Tr Urine WBC (Auto) 10.0 H Urine RBC (Auto) < 1.0 U Epithel Cells (Auto) 6.0 Urine Bacteria (Auto) 4+ Urine Mucus 2+ - EKG Data -: EKG Interpreted by Me EKG shows normal: sinus rhythm, axis, intervals, QRS complexes, ST-T waves - EKG Data Interpretation: other (consider LVH by voltage in standard lead 1) Critical care attestation.: If time is entered above; I have spent that time in minutes in the direct care of this critically ill patient, excluding procedure time. ED Disposition Clinical Impression: Poorly-controlled hypertension, Prerenal azotemia UTI (urinary tract infection) Qualifiers: Urinary tract infection type: site unspecified Hematuria presence: without hematuria Qualified Code(s): N39.0 - Urinary tract infection, site not specified Disposition: TO HOME OR SELFCARE Is pt being admited?: No Does the pt Need Aspirin: No Condition: Stable Instructions: Hypertension (ED), Dehydration (ED) Additional Instructions: Increase fluids but avoid excessive salt. Take blood pressure medicine as prescribed. See Dr. Maldonado at 11 AM in the morning. I placed you on an antibiotic because he may have a mild urine infection. Prescriptions: Nitrofurantoin [place]/M-Cryst [Macrobid CAP] 100 mg PO Q12HR #10 capsule Referrals: PRIMARY CAREMD [Primary Care Provider] - 3-5 Days EREN MALDONADO MD [Staff Physician] - 24 Hours Time of Disposition: 12:05
[2019-09-04 12:31] VITALS: BP 127/88
== END 2019-09-04 12:28 | disposition home or self-care (01) ==
LOC: ED 08:32
DX: I10 Essential (primary) hypertension (principal); N39.0 Urinary tract infection, site not specified; R79.89 Other specified abnormal findings of blood chemistry; E11.9 Type 2 diabetes mellitus without complications; J45.909 Unspecified asthma, uncomplicated; M19.90 Unspecified osteoarthritis, unspecified site; Z79.899 Other long term (current) drug therapy; Z98.890 Other specified postprocedural states; Z88.2 Allergy status to sulfonamides
CPT/HCPCS: 36415; 80048; 81001; 82140; 84484; 85025; 85610; 87076; 87086; 87186; 93005; 93010

== ENCOUNTER 2020-03-25 09:48 | Emergency (ER) | payer MEDICAID, MEDICARE ==
--- NOTE | 2020-03-25 10:34 | Emergency Department Report ---
ED Extremity Problem HPI - General Chief complaint: Extremity Problem,Nontraumatic Stated complaint: LFT LEG/LFT FOOT NUMB/ANTHONY Time Seen by Provider: 03/25/20 10:17 Source: patient Mode of arrival: Ambulatory Limitations: No Limitations - History of Present Illness Initial comments: 64-year-old female with a past medical history of obesity, hypertension, gastric ulcer, borderline diabetes, previous CVA, arthritis, and asthma presents to the hospital with complaints of multiple ongoing complaints. Patient complains of lower extremity edema. She also complains of left leg numbness and intermittent cramping for the last 3 months. She states the numbness extends from the foot to the knee. She also complains of ongoing lower back pain. Patient also complains of dyspnea exertion x2 years. Patient denies cough, fever, recent travel, history of PE/DVT. Patient is also noncompliant with all her medication. She has not had all her medication in 3 months and is only taken 1 of several blood pressure medications. She also thinks that she is prescribed hydrochlorothiazide and has been noncompliant. PMD: Dr. Maldonado as per med rec: Stress thallium myocardial perfusion study report done 05/30/2017: Left ventricular chamber sizes with normals. Perfusion study demonstrates a small apical defect, worse on the resting study. No significant reversible defects identified. Gated analysis demonstrates normal left ventricular systolic function, ejection fraction 66%. Conclusion: Small fixed apical defect likely secondary to breast attenuation artifact. There is no reversible ischemia demonstrated on this study, negative study. Severity scale (0 -10): 0 - Related Data Previous Rx's Medication Instructions Recorded Last Taken Type Acetaminophen/Codeine [Tylenol 1 tab PO Q6H PRN #30 tab 05/30/17 Unknown Rx /Codeine # 3 tab] Amoxicillin/K Clav Tab [Augmentin 1 tab PO Q12HR #14 tab 05/30/17 Unknown Rx 875 mg] Aspirin EC [Halfprin EC] 81 mg PO QDAY #30 tablet. 05/30/17 Unknown Rx carvediloL [Coreg] 25 mg PO BID #60 tablet 05/30/17 Unknown Rx dilTIAZem HCl [Diltiazem 24Hr ER 1 tab PO QDAY #30 tab.er.24h 05/30/17 Unknown Rx (LA)] raNITIdine HCl [Zantac] 1 tab PO PRN PRN #30 tablet 05/30/17 Unknown Rx traMADoL [Ultram] 50 mg PO Q6HR PRN #20 tablet 09/14/17 Unknown Rx Nitrofurantoin [place]/M-Cryst 100 mg PO Q12HR #10 capsule 09/04/19 Unknown Rx [Macrobid CAP] Allergies Allergy/AdvReac Type Severity Reaction Status Date / Time sulfamethoxazole Allergy Swelling Verified 05/29/17 11:11 [From Bactrim] trimethoprim [From Bactrim] Allergy Swelling Verified 05/29/17 11:11 ED Review of Systems ROS: Stated complaint: LFT LEG/LFT FOOT NUMB/ANTHONY Other details as noted in HPI Comment: All other systems reviewed and negative ED Past Medical Hx - Past Medical History Previous Medical History?: Yes Hx Hypertension: Yes Hx CVA: Yes (2009) Hx Heart Attack/AMI: No Hx Congestive Heart Failure: No Hx Diabetes: Yes Hx GERD: No Hx Arthritis: Yes Hx Asthma: Yes Hx COPD: No Hx Tuberculosis: No Hx HIV: No Additional medical history: Gastric ulcer - Surgical History Past Surgical History?: Yes Additional Surgical History: stomach surgery - Social History Smoking Status: Never Smoker Substance Use Type: None - Medications Home Medications: Home Medications Medication Instructions Recorded Confirmed Last Taken Type Acetaminophen/Codeine [Tylenol 1 tab PO Q6H PRN #30 tab 05/30/17 Unknown Rx /Codeine # 3 tab] Amoxicillin/K Clav Tab [Augmentin 1 tab PO Q12HR #14 tab 05/30/17 Unknown Rx 875 mg] Aspirin EC [Halfprin EC] 81 mg PO QDAY #30 tablet. 05/30/17 Unknown Rx carvediloL [Coreg] 25 mg PO BID #60 tablet 05/30/17 Unknown Rx dilTIAZem HCl [Diltiazem 24Hr ER 1 tab PO QDAY #30 tab.er.24h 05/30/17 Unknown Rx ([place])] raNITIdine HCl [Zantac] 1 tab PO PRN PRN #30 tablet 05/30/17 Unknown Rx traMADoL [Ultram] 50 mg PO Q6HR PRN #20 tablet 09/14/17 Unknown Rx Nitrofurantoin [place]/M-Cryst 100 mg PO Q12HR #10 capsule 09/04/19 Unknown Rx [Macrobid CAP] ED Physical Exam - General Limitations: No Limitations - Other Other exam information: General: No acute distress Head: Atraumatic Eyes: normal appearance ENT: Moist mucous membranes Neck: Normal appearance, no midline tenderness Chest: Clear to auscultation bilaterally CV: Regular rate and rhythm Abdomen: Soft, normal bowel sounds, nontender, nondistended, no rebound or guarding Back: Normal inspection, back pain with movement Extremity: Bilateral pedal and ankle edema. 2+ DP pulses. Full range of motion. Decreased sensation to touch at lateral left leg Neuro: Alert O x 3, no facial asymmetry, speech clear, decreased sensation to touch to lateral left leg. 5/5 upper lower extremity Psych: Appropriate behavior Skin: No rash ED Course Vital Signs 03/25/20 03/25/20 09:53 10:29 Temperature 98.2 F Pulse Rate 94 H 88 Respiratory 20 17 Rate Blood Pressure 190/78 Blood Pressure 183/73 [Left] O2 Sat by Pulse 95 100 Oximetry ED Medical Decision Making - Lab Data Result diagrams: 03/25/20 11:29 03/25/20 11:29 Lab Results 03/25/20 03/25/20 03/25/20 Range/Units 11:29 11:29 11:29 WBC 5.7 (4.5-11.0) K/mm3 RBC 4.10 (3.65-5.03) M/mm3 Hgb 12.5 (10.1-14.3) gm/dl Hct 38.5 (30.3-42.9) % MCV 94 (79-97) fl MCH 31 (28-32) pg MCHC 33 (30-34) % RDW 15.5 H (13.2-15.2) % Plt Count 246 (140-440) K/mm3 Lymph % (Auto) 27.6 (13.4-35.0) % [place] % (Auto) 7.9 H (0.0-7.3) % Eos % (Auto) 0.3 (0.0-4.3) % Baso % (Auto) 0.4 (0.0-1.8) % Lymph # 1.6 (1.2-5.4) K/mm3 [place] # 0.5 (0.0-0.8) K/mm3 Eos # 0.0 (0.0-0.4) K/mm3 Baso # 0.0 (0.0-0.1) K/mm3 Seg Neutrophils % 63.8 (40.0-70.0) % Seg Neutrophils # 3.7 (1.8-7.7) K/mm3 PT 12.8 (12.2-14.9) Sec. INR 0.95 (0.87-1.13) Sodium 143 (137-145) mmol/L Potassium 3.8 (3.6-5.0) mmol/L Chloride 106.4 (98-107) mmol/L Carbon Dioxide 25 (22-30) mmol/L Anion Gap 15 mmol/L BUN 22 H (7-17) mg/dL Creatinine 0.8 (0.7-1.2) mg/dL Estimated GFR > 60 ml/min BUN/Creatinine Ratio 28 % Glucose 98 (65-100) mg/dL Calcium 9.1 (8.4-10.2) mg/dL Magnesium (1.7-2.3) mg/dL Total Bilirubin 0.20 (0.1-1.2) mg/dL AST 15 (5-40) units/L ALT 18 (7-56) units/L Alkaline Phosphatase 116 (35-129) units/L Troponin T < 0.010 (0.00-0.029) ng/mL NT-Pro-B Natriuret Pep 55.15 (0-900) pg/mL Total Protein 7.8 (6.3-8.2) g/dL Albumin 3.9 (3.9-5) g/dL Albumin/Globulin Ratio 1.0 % 04/29/20 Range/Units 11:29 WBC (4.5-11.0) K/mm3 RBC (3.65-5.03) M/mm3 Hgb (10.1-14.3) gm/dl Hct (30.3-42.9) % MCV (79-97) fl MCH (28-32) pg MCHC (30-34) % RDW (13.2-15.2) % Plt Count (140-440) K/mm3 Lymph % (Auto) (13.4-35.0) % [place] % (Auto) (0.0-7.3) % Eos % (Auto) (0.0-4.3) % Baso % (Auto) (0.0-1.8) % Lymph # (1.2-5.4) K/mm3 [place] # (0.0-0.8) K/mm3 Eos # (0.0-0.4) K/mm3 Baso # (0.0-0.1) K/mm3 Seg Neutrophils % (40.0-70.0) % Seg Neutrophils # (1.8-7.7) K/mm3 PT (12.2-14.9) Sec. INR (0.87-1.13) Sodium (137-145) mmol/L Potassium (3.6-5.0) mmol/L Chloride (98-107) mmol/L Carbon Dioxide (22-30) mmol/L Anion Gap mmol/L BUN (7-17) mg/dL Creatinine (0.7-1.2) mg/dL Estimated GFR ml/min BUN/Creatinine Ratio % Glucose (65-100) mg/dL Calcium (8.4-10.2) mg/dL Magnesium 2.00 (1.7-2.3) mg/dL Total Bilirubin (0.1-1.2) mg/dL AST (5-40) units/L ALT (7-56) units/L Alkaline Phosphatase (35-129) units/L Troponin T (0.00-0.029) ng/mL NT-Pro-B Natriuret Pep (0-900) pg/mL Total Protein (6.3-8.2) g/dL Albumin (3.9-5) g/dL Albumin/Globulin Ratio % - EKG Data -: EKG Interpreted by Or EKG shows normal: sinus rhythm, QRS complexes (lvh) Rate: normal (79) - EKG Data When compared to previous EKG there are: no significant change - Radiology Data Radiology results: report reviewed CHEST 2 VIEWS INDICATION: sob. COMPARISON: 05/29/2017 FINDINGS: Support devices: None. Heart: Mildly enlarged and larger than on the last exam. Pulmonary vasculature: Mild central vascular congestion. However, the vessels have distinct margins. Lungs/pleura: No acute air space or interstitial disease. No pleural effusion. No pneumothorax. Additional findings: None. IMPRESSION: 1. Cardiomegaly but no CHF. 2. No pneumonia. LUMBAR SPINE 3 VIEWS INDICATION / CLINICAL INFORMATION: back pain, left leg numbness. COMPARISON: None available. FINDINGS: VERTEBRAE: No acute fracture. No significant malalignment. DISC SPACES / FACET JOINTS:Moderate size osteophytes. Mild disc space narrowing at L4-5 and L5-S1. Multilevel facet joint sclerosis. PARASPINAL SOFT TISSUES:No significant abnormality. ADDITIONAL FINDINGS: None. IMPRESSION: Moderate multilevel degenerative disc disease and multilevel facet joint arthropathy. No acute findings. DUPLEX DOPPLER LOWER EXTREMITY VEINS, BILATERAL INDICATION: lower extermity swelling. TECHNIQUE: Duplex doppler imaging was performed through the veins of both lower extremities using venous compression and other maneuvers. COMPARISON: None available. FINDINGS: Right Common Femoral vein: Negative. Right Superficial Femoral vein: Negative. Right Popliteal vein: Negative. Right Calf veins: Negative. Left Common Femoral vein: Negative. Left Superficial Femoral vein: Negative. Left Popliteal vein: Negative. Left Calf veins: Negative. Additi onal findings: None. IMPRESSION: 1. No sonographic evidence for DVT in either lower extremity. - Medical Decision Making pt workup unremarkable, cxr naf, doppler b/l legs negative for dvt, labs unremarkablle, no hypoxia or tachypnea noted. Symptoms appear to be chronic and ongoing with chronic noncompliance with medications. Patient be discharged home and encouraged to follow-up with her primary care doctor as well as a orthopedic doctor for back pain and numbness Patient given 1 dose of p.o. Lasix and p.o. potassium in the ED and encouraged to fill her medication - Differential Diagnosis DVT, CHF, venous stasis, radiculopathy, obesity hypoventilation, electrolyt Critical Care Time: No Critical care attestation.: If time is entered above; I have spent that time in minutes in the direct care of this critically ill patient, excluding procedure time. ED Disposition Clinical Impression: Leg edema, Left leg numbness, Chronic hypertension, Chronic back pain, Obesity, Nonadherence to medication Disposition: DC- TO HOME OR SELFCARE Is pt being admited?: No Does the pt Need Aspirin: No Condition: Stable Instructions: Hypertension (ED), Chronic Back Pain (ED), Lumbar Radiculopathy (ED), Leg Edema (ED) Additional Instructions: Fill your currently prescribed medications and take as prescribed. Follow-up with your doctor or doctor/clinic provided. Return if symptoms worsen as indicated by your discharge instructions. [facility] [Primary Care Provider] - 3-5 Days EREN MALDONADO MD [Staff Physician] - 3-5 Days DIONY CABRERA MD [Staff Physician] - 3-5 Days
--- NOTE | 2020-03-25 11:33 | XRay Report ---
CHEST 2 VIEWS INDICATION: sob. COMPARISON: 05/29/2017 FINDINGS: Support devices: None. Heart: Mildly enlarged and larger than on the last exam. Pulmonary vasculature: Mild central vascular congestion. However, the vessels have distinct margins. Lungs/pleura: No acute air space or interstitial disease. No pleural effusion. No pneumothorax. Additional findings: None. IMPRESSION: 1. Cardiomegaly but no CHF. 2. No pneumonia. Signer Name: Jeyson Aldana MD Signed: 03/25/2020 11:29 AM Workstation Name: [id number]
--- NOTE | 2020-03-25 11:35 | XRay Report ---
LUMBAR SPINE 3 VIEWS INDICATION / CLINICAL INFORMATION: back pain, left leg numbness. COMPARISON: None available. FINDINGS: VERTEBRAE: No acute fracture. No significant malalignment. DISC SPACES / FACET JOINTS:Moderate size osteophytes. Mild disc space narrowing at L4-5 and L5-S1. Mu ltilevel facet joint sclerosis. PARASPINAL SOFT TISSUES:No significant abnormality. ADDITIONAL FINDINGS: None. IMPRESSION: Moderate multilevel degenerative disc disease and multilevel facet joint arthropathy. No acute findings. Signer Name: Jeyson Aldana MD Signed: 03/25/2020 11:31 AM Workstation Name: [id number]
--- NOTE | 2020-03-25 11:39 | Vascular Lab Report ---
DUPLEX DOPPLER LOWER EXTREMITY VEINS, BILATERAL INDICATION: lower extermity swelling. TECHNIQUE: Duplex doppler imaging was performed through the veins of both lower extremities using venous yuri wilmar and other maneuvers. COMPARISON: None available. FINDINGS: Right Common Femoral vein: Negative. Right Superficial Femoral vein: Negative. Right Popliteal vein: Negative. Right Calf veins: Negative. Left Common Femoral vein: Negative. Left Superficial Femoral vein: Negative. Left Popliteal vein: Negative. Left Calf veins: Negative. Additional findings: None. IMPRESSION: 1. No sonographic evidence for DVT in either lower extremity. Signer Name: Ubaldo Villalta MD Signed: 03/25/2020 11:35 AM Workstation Name: [email or web address]
[2020-03-25 12:00] LABS: Basophils % (Auto) 0.4 % (0.0-1.8); Eosinophils % (Auto) 0.3 % (0.0-4.3); Hematocrit 38.5 % (30.3-42.9); Hemoglobin 12.5 gm/dl (10.1-14.3); Lymphocytes # (Auto) 1.6 K/mm3 (1.2-5.4); Lymphocytes % (Auto) 27.6 % (13.4-35.0); Mean Corpuscular HGB Conc 33 % (30-34); Mean Corpuscular Volume 94 fl (79-97); Monocytes # (Auto) 0.5 K/mm3 (0.0-0.8); Monocytes % (Auto) 7.9 % (0.0-7.3); Platelet Count 246 K/mm3 (140-440); Red Cell Distribution Width 15.5 % (13.2-15.2)
[2020-03-25 12:15] LABS: Alanine Aminotransferase 18 units/L (7-56); Albumin 3.9 g/dL (3.9-5); BUN/Creatinine Ratio 28; Blood Urea Nitrogen 22 mg/dL (7-17); Calcium 9.1 mg/dL (8.4-10.2); Hemolysis Index 3
[2020-03-25 12:20] LABS: INR 0.95 (0.87-1.13)
[2020-03-25 12:34] VITALS: BP 194/91
[2020-03-25] MEDS: FUROSEMIDE 20 MG TAB PO ONE (12:34)
[2020-03-25] MEDS: POTASSIUM CHLORIDE ER 20 MEQ TAB PO ONE (12:34)
== END 2020-03-25 12:46 | disposition home or self-care (01) ==
LOC: ED 09:48
DX: R60.0 Localized edema (principal); I10 Essential (primary) hypertension; R20.0 Anesthesia of skin; G89.29 Other chronic pain; I25.2 Old myocardial infarction; E11.9 Type 2 diabetes mellitus without complications; M13.88 Other specified arthritis, other site; J45.909 Unspecified asthma, uncomplicated; Z98.890 Other specified postprocedural states; Z79.899 Other long term (current) drug therapy; Z88.2 Allergy status to sulfonamides
CPT/HCPCS: 36415; 71046; 72100; 80053; 83735; 83880; 84484; 85025; 85610; 93005; 93970

== ENCOUNTER 2021-02-15 09:47 | Emergency (ER) | payer MEDICARE ==
--- NOTE | 2021-02-15 10:11 | Event Note ---
ED Screening Note Date of service: 02/15/21 Time: 10:11 ED Screening Note: 65-year-old female with a past history of hypertension, diabetes, asthma neuropathy and obesity presents to the ER today with complaints of epigastric pain, nausea vomiting since this past weekend. This initial assessment/diagnostic orders/clinical plan/treatment(s) is/are subject to change based on patients health status, clinical progression and re- assessment by fellow clinical providers in the ED. Further treatment and workup at subsequent clinical providers discretion. Patient/guardian urged not to elope from the ED as their condition may be serious if not clinically assessed and managed. Initial orders include: Abdominal pain order set including EKG, troponin and a chest x-ray
[2021-02-15 10:49] LABS: Basophils % (Auto) 0.8 % (0.0-1.8); Eosinophils % (Auto) 0.7 % (0.0-4.3); Hematocrit 37.1 % (30.3-42.9); Hemoglobin 12.4 gm/dl (10.1-14.3); Lymphocytes # (Auto) 1.9 K/mm3 (1.2-5.4); Lymphocytes % (Auto) 36.1 % (13.4-35.0); Mean Corpuscular HGB Conc 33 % (30-34); Mean Corpuscular Volume 92 fl (79-97); Monocytes # (Auto) 0.5 K/mm3 (0.0-0.8); Monocytes % (Auto) 8.8 % (0.0-7.3); Platelet Count 217 K/mm3 (140-440); Red Blood Count 4.03 M/mm3 (3.65-5.03); Red Cell Distribution Width 15.9 % (13.2-15.2)
--- NOTE | 2021-02-15 10:52 | XRay Report ---
XR chest routine 2V INDICATION / CLINICAL INFORMATION: Epigastric AND CHEST PAIN. COMPARISON: Multiple chest radiograph, most recent dated 09/28/2020 FINDINGS: SUPPORT DEVICES: None. HEART /PULMONARY VASCULATURE: There is mild cardiac enlargement. No pulmonary vasculature congestion. LUNGS / PLEURA: 8 mm nodular opacity projects over the right upper lung. Additional 2 cm nodular dens ity projects over the left upper lung. Both opacities project over the anterior ribs and may reflect bone islands or may be artifactual. Otherwise, no significant pulmonary or pleural abnormality. ADDITIONAL FINDINGS: No significant additional findings. IMPRESSION: 1. Indeterminate nodular opacity projects within the upper lungs bilaterally. Recommend further eval uation with CT chest. 2. No acute chest process. Signer Name: Ishan Ulloa MD Signed: 02/15/2021 10:48 AM Workstation Name: [id number]
--- NOTE | 2021-02-15 11:27 | Emergency Department Report ---
ED Abdominal Pain HPI - General Chief Complaint: Abdominal Pain Stated Complaint: CHEST PAIN/VOMITING/FOOT NUMB Time Seen by Provider: 02/15/21 10:06 Source: patient Mode of arrival: Ambulatory Limitations: No Limitations - History of Present Illness Initial Comments: 65-year-old female with a past history of hypertension, diabetes, asthma neuropathy and obesity presents to the ER today with complaints of epigastric pain, nausea vomiting since this past weekend. She states that she had couple episodes of diarrhea a day ago but this has since resolved. She denies any chest pain. She reports her same chronic shortness of breath mainly on exertion, but nothing worsens her symptoms started this past weekend. She reports tingling and numbness to her toes with no swelling to her legs or calf pain. She denies any apparent ill contacts, bad food intake or recent travel out of country or recent antibiotic use. She state she thinks her symptoms could be related to her metformin as she has had similar symptoms while taking the Metformin before. She admits that she has stopped taking the Metformin for the past few days. She has spoken to her doctor about switching her over to a different diabetic medication, but she states that he sent in the wrong medication but she has not notified him of this as yet. MD Complaint: abdominal pain -: days(s) Location: epigastric - Related Data Previous Rx's Medication Instructions Recorded Last Taken Type Aspirin EC [Halfprin EC] 81 mg PO QDAY #30 tablet. 05/30/17 Unknown Rx carvediloL [Coreg] 25 mg PO BID #60 tablet 05/30/17 Unknown Rx dilTIAZem HCl [Diltiazem 24Hr ER 1 tab PO QDAY #30 tab.er.24h 05/30/17 Unknown Rx ([place])] Esomeprazole Magnesium [NexIUM] 40 mg PO QDAY #30 capsule. 02/15/21 Unknown Rx Famotidine [Pepcid] 20 mg PO BID #60 tablet 02/15/21 Unknown Rx Ondansetron [Zofran Odt] 4 mg PO Q8HR PRN #12 tab.rapdis 02/15/21 Unknown Rx cephALEXin [Keflex] 500 mg PO Q8HR #21 cap 02/15/21 Unknown Rx Allergies Allergy/AdvReac Type Severity Reaction Status Date / Time sulfamethoxazole Allergy Swelling Verified 02/15/21 09:54 [From Bactrim] trimethoprim [From Bactrim] Allergy Swelling Verified 02/15/21 09:54 ED Review of Systems ROS: Stated complaint: CHEST PAIN/VOMITING/FOOT NUMB Other details as noted in HPI Comment: All other systems reviewed and negative Constitutional: denies: chills, fever Eyes: denies: eye pain, eye discharge, vision change ENT: denies: ear pain, throat pain Respiratory: shortness of breath (Chronic secondary to her asthma) Cardiovascular: denies: chest pain, palpitations Gastrointestinal: abdominal pain, nausea, vomiting. denies: diarrhea, constip ation, hematemesis, melena, hematochezia Genitourinary: denies: urgency, dysuria, discharge Musculoskeletal: denies: back pain, joint swelling, arthralgia Skin: denies: rash, lesions Neurological: denies: headache, weakness, paresthesias ED Past Medical Hx - Past Medical History Hx Hypertension: Yes Hx CVA: Yes (2009) Hx Heart Attack/AMI: No Hx Congestive Heart Failure: No Hx Diabetes: Yes Hx GERD: No Hx Arthritis: Yes Hx Asthma: Yes Hx COPD: No Hx Tuberculosis: No Hx HIV: No Additional medical history: Gastric ulcer - Surgical History Additional Surgical History: stomach surgery - Social History Smoking Status: Never Smoker Substance Use Type: None - Medications Home Medications: Home Medications Medication Instructions Recorded Confirmed Last Taken Type Aspirin EC [Halfprin EC] 81 mg PO QDAY #30 tablet. 05/30/17 Unknown Rx carvediloL [Coreg] 25 mg PO BID #60 tablet 05/30/17 Unknown Rx dilTIAZem HCl [Diltiazem 24Hr ER 1 tab PO QDAY #30 tab.er.24h 05/30/17 Unknown Rx ([place])] Esomeprazole Magnesium [NexIUM] 40 mg PO QDAY #30 capsule. 02/15/21 Unknown Rx Famotidine [Pepcid] 20 mg PO BID #60 tablet 02/15/21 Unknown Rx Ondansetron [Zofran Odt] 4 mg PO Q8HR PRN #12 tab.rapdis 02/15/21 Unknown Rx cephALEXin [Keflex] 500 mg PO Q8HR #21 cap 02/15/21 Unknown Rx ED Physical Exam - General Limitations: No Limitations General appearance: alert, in no apparent distress, in distress - Head Head exam: Present: atraumatic, normocephalic, normal inspection - Eye Eye exam: Present: normal appearance, PERRL, EOMI Pupils: Present: normal accommodation - Neck Neck exam: Present: normal inspection, full ROM - Respiratory Respiratory exam: Present: normal lung sounds bilaterally. Absent: respiratory distress - Cardiovascular Cardiovascular Exam: Present: regular rate, normal rhythm, normal heart sounds - GI/Abdominal GI/Abdominal exam: Present: soft. Absent: distended, tenderness, guarding, rebound - Extremities Exam Extremities exam: Present: normal inspection, full ROM, normal capillary refill, other (Dorsalis pedis pulses normal and equal bilaterally.). Absent: pedal edema, calf tenderness - Neurological Exam Neurological exam: Present: alert, oriented X3, CN II-XII intact, normal gait. Absent: motor sensory deficit - Psychiatric Psychiatric exam: Present: normal affect, normal mood - Skin Skin exam: Present: intact ED Course Vital Signs 02/15/21 02/15/21 09:54 13:03 Temperature 98.7 F Pulse Rate 98 H Respiratory 18 18 Rate Blood Pressure 179/81 O2 Sat by Pulse 96 99 Oximetry ED Medical Decision Making - Lab Data Result diagrams: 02/15/21 10:21 02/15/21 10:21 - EKG Data EKG shows normal: sinus rhythm Rate: normal (74) - EKG Data When compared to previous EKG there are: no significant change Interpretation: no acute changes - Radiology Data Radiology results: report reviewed Patient: MISSY WEISS MR#: [id number] : 1955 Acct:[id number] Age/Sex: 65 / F ADM Date: 02/15/21 Loc: ED Attending Dr: Ordering Physician: MELE FAGAN Date of Service: 02/15/21 Procedure(s): XR chest routine 2V Accession Number(s): [id number] cc: MELE FAGAN Fluoro Time In Minutes: XR chest routine 2V INDICATION / CLINICAL INFORMATION: Epigastric AND CHEST PAIN. COMPARISON: Multiple chest radiograph, most recent dated 09/28/2020 FINDINGS: SUPPORT DEVICES: None. HEART /PULMONARY VASCULATURE: There is mild cardiac enlargement. No pulmonary vasculature congestion. LUNGS / PLEURA: 8 mm nodular opacity projects over the right upper lung. Addit ional 2 cm nodular density projects over the left upper lung. Both opacities project over the anter ior ribs and may reflect bone islands or may be artifactual. Otherwise, no significant pulmonary or pleural abnormality. ADDITIONAL FINDINGS: No significant additional findings. IMPRESSION: 1. Indeterminate nodular opacity projects within the upper lungs bilaterally. Recommend further evaluation with CT chest. 2. No acute chest process. Signer Name: Niranjan Ulloa MD Signed: 02/15/2021 10:48 AM Workstation Name: [id number] Transcribed By: TIANNA Dictated By: NIRANJAN ULLOA MD Electronically Authenticated By: NIRANJAN ULLOA MD Signed Date/Time: 02/15/211047 DD/ 41 TD/TT: - Medical Decision Making 65-year-old female with a past history of hypertension, diabetes, asthma neuropathy and obesity presents to the ER today with complaints of epigastric pain, nausea vomiting since this past weekend. She states that she had couple episodes of diarrhea a day ago but this has since resolved. She denies any chest pain. She reports her same chronic shortness of breath mainly on exertion, but nothing worsens her symptoms started this past weekend. She reports tingling and numbness to her toes with no swelling to her legs or calf pain. She denies any apparent ill contacts, bad food intake or recent travel out of country or recent antibiotic use. She state she thinks her symptoms could be related to her metformin as she has had similar symptoms while taking the Metformin before. She admits that she has stopped taking the Metformin for the past few days. She has spoken to her doctor about switching her over to a different diabetic medication, but she states that he sent in the wrong medication but she has not notified him of this as yet. 1402; patient currently resting comfortably, watching TV. She is not in any acute distress. She is not in any respiratory distress. There has been no vomiting during stay. She is neurologically intact and has been observed ambulating the ER with a normal gait. She has a soft nontender abdomen. Lab results as well as chest x-ray results and EKG results reviewed with patient. CBC and CMP unremarkable. Troponin normal. EKG shows no acute ischemic changes/STEMI or significant dysrhythmias. Chest x-ray shows pulmonary nodule with recommended outpatient CT follow-up but otherwise nothing acute. Discussed suspected diagnosis and treatment plan with patient. At this time is no indication for any further testing/imaging, admission or emergent consult. Recommend that patient follows up with her primary care doctor this week. P atient was stable at time of discharge. - Differential Diagnosis GERD, peptic ulcer disease, gallbladder disease, pancreatitis, ACS, AAA Critical care attestation.: If time is entered above; I have spent that time in minutes in the direct care of this critically ill patient, excluding procedure time. ED Disposition Clinical Impression: Pulmonary nodule, Epigastric abdominal pain, Peripheral neuropathy, UTI (urinary tract infection) Disposition: TO HOME OR SELFCARE Is pt being admited?: No Does the pt Need Aspirin: No Condition: Stable Instructions: Gastritis, Adult, [id number], Abdominal Pain, Adult, Peripheral Neuropathy, Urinary Tract Infection, Adult, [id number], Pulmonary Nodule, [id number], Abdominal Pain (ED) Additional Instructions: Take the pepcid, keflex and the nexium as prescribed. Take the zofran as needed for nausea and vomiting. I recommend that you talk to you PCP about your metformin and also for continued monitoring of your pulmonary nodule that was seen on your x-ray today. Follow up with your PCP this week. Return to ED if symptoms worsens or changes in anyway. Prescriptions: cephALEXin [Keflex] 500 mg PO Q8HR #21 cap Esomeprazole Magnesium [NexIUM] 40 mg PO QDAY #30 capsule. Famotidine [Pepcid] 20 mg PO BID #60 tablet Ondansetron [Zofran Odt] 4 mg PO Q8HR PRN #12 tab.rapdis PRN Reason: Nausea Referrals: EREN MALDONADO MD [Primary Care Provider] - 3-5 Days Time of Disposition: 13:58
[2021-02-15] MEDS ORDERED: FAMOTIDINE 20 MG TAB PO ONE (11:32)
[2021-02-15] MEDS ORDERED: ONDANSETRON 4 MG ODT TAB PO ONE (11:32)
[2021-02-15] MEDS ORDERED: ALUM-MAG HYDROXIDE-SIMETHICONE 200-200-20MG/5ML ORAL LIQD 30 ML PO ONE (11:32)
[2021-02-15 11:43] LABS: Alanine Aminotransferase 21 units/L (7-56); Albumin 3.7 g/dL (3.9-5); BUN/Creatinine Ratio 21; Blood Urea Nitrogen 17 mg/dL (7-17); Calcium 8.4 mg/dL (8.4-10.2); Hemolysis Index 4
[2021-02-15 11:51] LABS: Bilirubin,Direct < 0.2 mg/dL (0-0.2)
[2021-02-15 13:25] LABS: Mucus,Urine 1+ /HPF
[2021-02-15 13:47] LABS: Bacteria,Urine 4+ /HPF (Negative); Bilirubin,Urine NEG (Negative); Blood,Urine NEG (Negative); Color,Urine Yellow (Yellow); Protein,Urine <15 mg/dL mg/dL (Negative); Urobilinogen,Urine < 2.0 mg/dL (<2.0)
[2021-02-15 14:35] VITALS: BP 185/97
--- NOTE | 2021-02-18 10:56 | Electrocardiograph Report ---
[facility] Test Date: 2021-02-15 Test Time: 12:55:38 Pat Name: MISSY WEISS Department: Room: Gender: F Quality Checker: ralf : 1955 Requested By: MELE FAGAN Order Number: [id number] Reading MD: Laith Peck Measurements Intervals Fonda Rate: 74 P: 60 ID: [id number] QRS: 41 QRSD: 102 T: 35 QT: 404 QTc: 449 Interpretive Statements Sinus rhythm Probable left ventricular hypertrophy No previous ECG available for comparison Electronically Signed On 02-18-2021 7:56:05 PDT by Laith Peck
== END 2021-02-15 14:35 | disposition home or self-care (01) ==
LOC: ED 09:47
DX: R91.8 Other nonspecific abnormal finding of lung field (principal); G62.9 Polyneuropathy, unspecified; N39.0 Urinary tract infection, site not specified; I10 Essential (primary) hypertension; E11.9 Type 2 diabetes mellitus without complications; M19.90 Unspecified osteoarthritis, unspecified site; J45.909 Unspecified asthma, uncomplicated; Z79.899 Other long term (current) drug therapy; Z79.82 Long term (current) use of aspirin
CPT/HCPCS: 36415; 71046; 80048; 80076; 81001; 83690; 84484; 85025; 87076; 87086; 87186; 93005; Q0162

== ENCOUNTER 2021-07-28 10:14 | Emergency (ER) | payer MEDICARE ==
[2021-07-28 10:34] VITALS: BP 148/117
== END 2021-07-28 13:45 ==
LOC: ED 10:14
DX: M54.2 Cervicalgia (principal); Z53.21 Procedure and treatment not carried out due to patient leaving prior to being seen by health care provider